=== PATIENT | female | born 1995 | race Caucasian/White ===

== ENCOUNTER 2019-08-03 17:45 | Outpatient (RCR) | payer BC, SELFPAY ==
--- NOTE | 2019-07-06 16:47 | PTOPEVAL ---
PHYSICAL THERAPY EVALUATION AND PLAN OF CARE Thank you for referring this patient to [facility]. Pepper will be seen in PT 1-2x/week for 5-8 weeks. Please review, sign, date and return this plan of care RONI. I agree with and certify that the following plan of care is medically necessary. Referring Physician Date Attending Provider: Rosa Maria Nesbitt CNM Evaluation Evaluation Information Diagnosis left hip/pelvic pain Onset May 18, 2019 Subjective Information Pepper is here today with Query Text:As Reported By Patient/ acute on chronic left hip/ Family pelvic pain following child . States she has had difficulty with her hips prior to childbirth, but it is definitely worse now. She reports feeling very unstable while walking and standing. Self Report Pain Assessment Left Hip(s) Reported Pain Level 3 Radicular Pain Location tension Pain Frequency Chronic,Continuous Current Pain Intensity 3 Lowest Pain Intensity 2 Greatest Pain Intensity 8 Pain Aggravating Factors Exercise/Activity,Walking, Weight Bearing/Standing Other Pain Aggravating Factors sitting bryn cross Other Alleviating Interventions prone figure 4 position is most comfortable position Lumbar ROM Lumbar Flexion Active Ankle Query Text:Hands to: Lumbar Extension (0-40) 20 Query Text:Active in Degrees Lateral Rotation Right (0-45) 20 Query Text:Active in Degrees Lateral Rotation Left (0-45) 35 Query Text:Active in Degrees Lower Extremity Range of Motion Gross Lower Extremity Range of Motion right hip ER <left hip ER; Lumbar Muscle Testing Lumbar Strength Lower Abdominal Strength 3-Fair- Lower Back Extension 3 Fair Hip Strength Left Hip Flexion Strength 4- Good - Hip Extension Strength 3 Fair Hip Abduction Strength 4 Good Right Hip Flexion Strength 4 Good Hip Extension Strength 3+ Fair + Hip Abduction Strength 4- Good - Knee Strength Bilateral Knee Flexion Strength 4 Good Knee Extension Strength 4 Good Posture Supine Position Pelvis Posture (L) ASIS Inferior Additional Posture Comments in standing: right pelvis elevated when standing equally on two feet; patient tends to stand casually on left foot with right foot popped Palpation
--- NOTE | 2019-07-15 14:52 | PCPTNOTE ---
Patient called & cancelled scheduled appointment this date due to inclement water.
--- NOTE | 2019-07-27 15:52 | PCPTNOTE ---
Patient called & cancelled scheduled appointment this date as daughter is sick.
--- NOTE | 2019-08-10 15:59 | PCPTNOTE ---
Patient called & cancelled scheduled appointment this date with another conflict. I will call to reschedule her re-evaluation.
--- NOTE | 2019-09-02 14:34 | PCPTNOTE ---
Attending Provider: Rosa Maria Nesbitt CNM Patient:Pepper Silveira Date of :1995 Patient has not returned for any further treatments since 08/03/2019, therefore she will be discharged from therapy at this time. The goals have been partially achieved. Thank you for referring this patient to [facility]. Please review, sign, date and return this discharge summary RONI. I have been updated about the patient's current status and I agree with discharge from the above service at this time. Referring Physician Date
== END 2019-09-03 14:44 | disposition home or self-care (01) ==
LOC: ANHPT 17:45
PROVIDERS: PCP Internal Medicine; Visit Provider Advanced Practice Midwife
DX: M25.552 Pain in left hip (principal)
CPT/HCPCS: 97110; 97140; 97161

== ENCOUNTER → 2021-09-07 15:23 | Outpatient (CLI) | payer OTHER, SELFPAY ==
--- NOTE | ~2021-09-07 | XR_ITS ---
XR hand RT min 3V DATE: 09/07/2021 15:50 INDICATION: Injury, pain TECHNIQUE: 3 views COMPARISON: None FINDINGS: No fracture, dislocation, periosteal reaction or bone destruction, erosive change, chondroc alcinosis. IMPRESSION: Negative Reviewed, dictated and finalized at location A. IMPRESSION: Negative
== END ==
PROVIDERS: Visit Provider Family Medicine
DX: S69.91XA Unspecified injury of right wrist, hand and finger(s), initial encounter (principal)
CPT/HCPCS: 73130

== ENCOUNTER 2022-06-13 11:40 | Emergency (ER) | payer OTHER, SELFPAY ==
[2022-06-13 11:48] VITALS: BP 122/94; PULSE 73; RESP 16; TEMP 36.3; O2SAT 100
--- NOTE | 2022-06-13 12:07 | ED.BACK ---
HPI - Back Pain/Injury General Chief Complaint: Back Pain/Injury Stated Complaint: Back Pain Time Seen by Provider: 06/13/22 11:55 Source: patient Mode of arrival: ambulatory Limitations: no limitations History of Present Illness HPI Narrative: Pepper is a 26-year-old female patient presenting to clinic today with complaints of low back pain times 2 days. She reports that the symptoms started yesterday when she got up off the couch. She denies any other injury to her back. States that she does have some chronic back pain due to pain epidural. Reports that pain is in the low back and radiating laterally. Rates her pain currently. She has taken ibuprofen/Motrin without relief. She denies any numbness or tingling. She denies any saddle anesthesia or loss of bowel or bladder. She denies any urinary symptoms Related Data Allergies Allergy/AdvReac Type Severity Reaction Status Date / Time latex Allergy Intermediate Rash Verified 06/13/22 11:44 escitalopram Allergy Unknown Other Verified 06/13/22 11:44 lactose AdvReac Intermediate Diarrhea Verified 06/13/22 11:44 Review of Systems Review of Systems: Pertinent positives per HPI. Patient denies any fever, chills, rash, headache, visual changes, dizziness, cough, runny nose, sore throat, shortness of breath, chest pain, palpitations, nausea, vomiting, diarrhea, constipation, abdominal pain, or any urinary issues. PMFSH Past Medical History Medical History Heart murmur Migraine aura without headache PCOS (polycystic ovarian syndrome) Family History Family History Other Unknown family medical history Social History Social History Smoking status: Never smoker Alcohol intake: never Substance use: never Gender identity (if verbalized by the patient): Female Spiritual care concerns: No Comments At the time of my signature, I reviewed and agree with the nursing past medical, surgical, social, and family history. There is no relevant family history pertinent to the patient complaint. Exam Narrative: General: Well-developed, well nourished, in no apparent distress Head: Normocephalic, atraumatic. Cardio: Regular rate and rhythm, s1 and s2 normal, no murmur appreciated. Resp: Clear to auscultation bilaterally, no rhonchi, rales, wheezing or rubs. Abdomen: Soft, pliable, nondistended, bowel sounds present all 4 quadrants, nontender to palpation, no CVAT tenderness, no organomegaly Musculoskeletal: No deformity, tender to palpation over the lumbar spine and paraspinous muscles, straight leg test positive bilaterally at approximately 80?, negative foot drop, bilateral lower muscle strength strong and equal, patellar reflexes 2/4, peripheral pulse strong, no edema, no cyanosis, normal gait and station Course Course Emergency Course: Portions of this record may have been created with voice recognition software. Level of Care: Express Care Visit Vital Signs Vital signs: Vital Signs Temperature 36.3 C L 06/13/22 11:48 Pulse Rate 73 06/13/22 11:48 Respiratory Rate 16 06/13/22 11:48 Blood Pressure 122/94 H 06/13/22 11:48 Pulse Oximetry 100 06/13/22 11:48 Oxygen Delivery Room Air 06/13/22 11:48 Temperature 36.3 C L 06/13/22 11:48 Pulse Rate 73 06/13/22 11:48 Respiratory Rate 16 06/13/22 11:48 Blood Pressure 122/94 H 06/13/22 11:48 Pulse Oximetry 100 06/13/22 11:48 Oxygen Delivery Room Air 06/13/22 11:48 Vital signs reviewed MDM - Back Pain/Injury Lab Data Labs: Urine Glucose Negative Reference Range: Negative Urine Bilirubin Negative Reference Range: Negative Urine Ketone Negative
== END 2022-06-13 12:33 | disposition home or self-care (01) ==
PROVIDERS: Emergency Provider Nurse Practitioner Family; PCP Family Medicine
DX: S39.012A Strain of muscle, fascia and tendon of lower back, initial encounter (principal); X50.9XXA Other and unspecified overexertion or strenuous movements or postures, initial encounter; R82.71 Bacteriuria; R01.1 Cardiac murmur, unspecified; E28.2 Polycystic ovarian syndrome
CPT/HCPCS: 81003; 87086; 99213; G0463

== ENCOUNTER 2022-12-08 20:22 | Emergency (ER) | payer BC, SELFPAY ==
--- NOTE | ~2022-12-08 | XR_ITS ---
EXAMINATION: XR chest 1V portable INDICATION: Shortness of breath TECHNIQUE: Portable AP chest at 2215 hours COMPARISON: 02/16/2009 FINDINGS: The lungs are free of acute opacities. No pleural effusion or pneumothorax. The cardiomedia stinal silhouette is normal. The visualized bones and soft tissues are unremarkable. IMPRESSION: 1. No acute cardiopulmonary abnormality. Reviewed, dictated and finalized at location A.
[2022-12-08 20:27] VITALS: BP 145/84; PULSE 78; RESP 16; TEMP 36.3; O2SAT 100
[2022-12-08 22:28] LABS: Basophils Absolute Auto 0.1 K/mm3 (0.0-0.1); Basophils Percent Auto 0.8 % (0.2-1.2); Eosinophils Percent Auto 0.6 % (0-4.4); Hematocrit 40.8 % (37.0-47.0); Hemoglobin 13.9 g/dL (12.0-15.0); Immature Granulocyte Absolute 0.02 K/mm3 (0.00-0.031); Immature Granulocyte Percent A 0.3 % (0-0.5); Lymphocytes Absolute Auto 2.16 K/mm3 (0.9-3.2); Lymphocytes Percent Auto 30.3 % (18.3-44.2); Mean Corpuscular HGB Conc 34.1 g/dl (32-36); Mean Corpuscular Hemoglobin 30.3 pg (26-34); Mean Corpuscular Volume 89.1 fl (80-100); Mean Platelet Volume 11.2 fl (7.4-10.4); Monocytes Absolute Auto 0.4 K/mm3 (0.1-0.6); Monocytes Percent Auto 5.2 % (2.6-8.5); Neutrophils Absolute Auto 4.5 K/mm3 (1.3-6.7); Neutrophils Percent Auto 62.8 % (45.5-73.1); Platelet Count Result 245 k/mm3 (150-375); Red Blood Count 4.58 M/mm3 (4.2-5.4); Red Cell Distribution Width 11.8 % (11.5-14.5); White Blood Count 7.1 K/mm3 (4.5-10.0)
[2022-12-08 22:41] LABS: Alanine Aminotransferase 15 U/L (6-35); Albumin Level 4.5 g/dL (3.5-5.1); Alkaline Phosphatase 62 U/L (38-126); Anion Gap 8 mmol/L (8-16); Aspartate Amino Transferase 19 U/L (14-36); Bilirubin,Total 0.6 mg/dL (0.2-1.3); Blood Urea Nitrogen 8 mg/dL (7-17); Calcium 9.2 mg/dL (8.4-10.2); Carbon Dioxide 27 mmol/L (22-30); Chloride 103 mmol/L (98-107); Estimated CRCL calculation 99 ml/min; Estimated Glomerular Filt Rate > 60; Glucose 104 mg/dL (65-110); Potassium 3.7 mmol/L (3.4-5.0); Sodium 138 mmol/L (137-145)
--- NOTE | 2022-12-08 22:41 | ECG_ITS ---
Measurements Intervals Yoder Rate: 83 P: 19 ID: 136 QRS: 17 QRSD: 113 T: 25 QT: 395 QTc: 465 Interpretive Statements SINUS RHYTHM NORMAL ECG NO PREVIOUS ECG AVAILABLE FOR COMPARISON Electronically Signed On 12-09-2022 8:49:56 CDT by Timbo Shaw D.O.
[2022-12-08] MEDS: SODIUM CHLORIDE 0.9% IV 1,000 ML 999 ML IV CONT (23:01)
--- NOTE | 2022-12-08 23:17 | ED.GENADULT ---
HPI - General Adult General Chief complaint: Unspecified Stated complaint: I think my anemia is really bad today Time Seen by Provider: 12/08/22 22:03 History of Present Illness HPI narrative: is a 19-year-old female with history of anxiety and depression presenting with 2 weeks of feeling unwell. She says that she has felt like she may pass out multiple times over the last 2 weeks. She notes that she is not sleeping well. She is not eating or drinking well. She thinks this may be related to her depression and anxiety. Patient has not had an actual syncopal event. She does note that she was anemic in her . she thinks this might be due to anemia. She has not seen her primary care physician and year. She has been trialed on antidepressants in the past but stopped taking them. Related Data Allergies Allergy/AdvReac Type Severity Reaction Status Date / Time latex Allergy Intermediate Rash Verified 12/08/22 20:23 escitalopram Allergy Unknown Other Verified 12/08/22 20:23 lactose AdvReac Intermediate Diarrhea Verified 12/08/22 20:23 [facility] Past Medical History Medical History Heart murmur Migraine aura without headache PCOS (polycystic ovarian syndrome) Family History Family History Other Unknown family medical history Social History Social History Smoking status: Never smoker Alcohol intake: never Substance use: never Gender identity (if verbalized by the patient): Female Spiritual care concerns: No Exam Narrative: APPEARANCE: No apparent distress. Well-appearing Head: atraumatic. EYES: EOMI, NOSE: Atraumatic NECK: Trachea midline RESPIRATORY: No increased rate of breathing, clear to auscultation CARDIOVASCULAR: RRR, no peripheral edema ABDOMINAL: Non-distended MUSCULOSKELETAl: No obvious deformities NEURO: Alert. Moving 4/4 extremities SKIN:: Warm, dry. Normal color PSYCHIATRIC: Normal affect Course Vital Signs Vital signs: Vital Signs Temperature 97.3 F L 12/08/22 20:27 Pulse Rate 78 12/08/22 20:27 Respiratory Rate 16 12/08/22 20:27 Blood Pressure 145/84 H 12/08/22 20:27 Pulse Oximetry 100 12/08/22 20:27 Temperature 97.3 F L 12/08/22 20:27 Pulse Rate 78 12/08/22 20:27 Respiratory Rate 16 12/08/22 20:27 Blood Pressure 145/84 H 12/08/22 20:27 Pulse Oximetry 100 12/08/22 20:27 Medical Decision Making MDM Narrative Medical decision making narrative: -Presentation: 27-year-old presenting with 2 weeks of generalized weakness, trouble sleeping and not eating well. -DDX includes but is not limited to: Anxiety, depression, anemia, dehydration -Co-morbidities complicating care: anxiety, depression, anemia, migraines -Social determinants of health: patient works at [employer], lives with her Jett and their 3-year-old child -External Chart Review: none -Hx from independent Sources: Jett at bedside -Independent interpretation of studies: laboratory studies normal. Chest x-ray normal. Independent EKG interpretation: Rhythm [sinus], Rate [83], [place] -[normal], [place] -[normal], QRS [narrow], QTC [normal], T waves -[negative for concerning inversions], ST Segments - [Negative for concerning elevations] Final interpretations: [Normal Sinus Rhythm] -Discussion of Management/Consultants: none -Dx tests considered but not ordered: none -Procedures: none -Interventions: 1 L normal saline -Shared decision making / Disposition: patient's workup has been negative. I suspect that her symptoms are more likely due to anxiety and depression as opposed to a physiologic cause. Patient will be discharged with primary care follow-up and return precautions. -RX Vital Signs Vital Signs: Vital Signs Temperature 97.3 F L 12/08/22 20:27 Pulse Rate 78
[2022-12-09 00:09] VITALS: BP 120/63; PULSE 92; RESP 16; O2SAT 100
== END 2022-12-09 00:11 | disposition home or self-care (01) ==
PROVIDERS: Emergency Provider Emergency Medicine; PCP Internal Medicine
DX: R53.1 Weakness (principal); E28.2 Polycystic ovarian syndrome; F41.9 Anxiety disorder, unspecified; F32.A Depression, unspecified; Z86.2 Personal history of diseases of the blood and blood-forming organs and certain disorders involving the immune mechanism
CPT/HCPCS: 36415; 71045; 80053; 85025; 93005; 96360; 99283; J7030

== ENCOUNTER 2023-01-27 15:15 | Emergency (ER) | payer BC, SELFPAY ==
--- NOTE | 2023-01-27 15:20 | ED.ABDPAIN ---
HPI - Abdominal Pain General Chief Complaint: Abdominal Pain Stated Complaint: Abdominal Pain Time Seen by Provider: 01/27/23 15:20 Source: patient Mode of arrival: ambulatory Limitations: no limitations History of Present Illness HPI narrative: Pepper is a 27-year-old female patient presenting to clinic today with complaints of abdominal pain. She reports she has been having IBS flares as week however obtain intense pain today. States that she is having pain to the upper abdomen this radiating her back also having some indigestion. Having nausea without vomiting. No hematemesis or blood in her stool. Last bowel movement was last night and it was loose. She denies any urinary symptoms or flank pain. History of IBS- mixed Related Data Home Medications Medication Instructions Recorded Confirmed No Home Medications 01/27/23 01/27/23 Allergies Allergy/AdvReac Type Severity Reaction Status Date / Time latex Allergy Intermediate Rash Verified 01/27/23 15:26 escitalopram Allergy Unknown Other Verified 01/27/23 15:26 lactose AdvReac Intermediate Diarrhea Verified 01/27/23 15:26 Review of Systems Review of Systems: Pertinent positives per HPI. Patient denies any fever, chills, rash, headache, visual changes, dizziness, cough, runny nose, sore throat, shortness of breath, chest pain, palpitations, nausea, vomiting, diarrhea, constipation,or any urinary issues. PMFSH Past Medical History Medical History Heart murmur Migraine aura without headache PCOS (polycystic ovarian syndrome) Family History Family History Other Unknown family medical history Social History Social History Smoking status: Never smoker Alcohol intake: never Substance use: never Gender identity (if verbalized by the patient): Female Spiritual care concerns: No Comments At the time of my signature, I reviewed and agree with the nursing past medical, surgical, social, and family history. There is no relevant family history pertinent to the patient complaint. Exam Narrative: General: Well-developed, well nourished, in no apparent distress. Head: Normocephalic, atraumatic. Cardio: Regular rate and rhythm, s1 and s2 normal, no murmur appreciated. Resp: Clear to auscultation bilaterally, no rhonchi, rales, wheezing or rubs. Abdomen: Soft, pliable, nondistended, bowel sounds present in all quadrants, tender to palpation over the mid epigastrium and left upper quadrant as well as the low mid abdomen, no organomegly, no CVAT tenderness. Course Course Emergency Course: Portions of this record may have been created with voice recognition software. Level of Care: Express Care Visit Vital Signs Vital signs: Vital signs reviewed MDM - Abdominal Pain MDM Narrative Medical decision making narrative: At the time of visit patient is resting on the exam table. Patient is tearful during assessment. UA is negative for any sign of infection or blood in her urine. test was negative in the clinic today. Recommend transfer to the ER for further evaluation to rule out gastritis, IBS, GERD, or pancreatitis-fluids and pain management. Contacted Dr. Judd at [facility]- report was given for continuity care and she accepts patient for transfer. Patient transfer via private car Differential Diagnosis Differential diagnosis: Likely abdominal pain, constipation, gastroenteritis, pancreatitis and other (Gastritis, peptic ulcer, cholecystitis, gallstones) Discharge Plan Discharge Clinical Impression: Abdominal pain Patient Disposition: Acute Care Hospital Condition: Stable Prescriptions: No Action No Home Medications Follow-up/Referrals: Hilario Pastor DO [Primary Care Provider] - Time of Disposition: 15:45 John
[2023-01-27 15:23] VITALS: BP 116/78; PULSE 88; RESP 16; TEMP 37.3; O2SAT 99
[2023-01-27 15:27] VITALS: BP 116/78; PULSE 88; RESP 16; TEMP 37.3; O2SAT 99
== END 2023-01-27 15:42 | disposition short-term general hospital (02) ==
PROVIDERS: Emergency Provider Nurse Practitioner Family; PCP Internal Medicine
DX: R10.13 Epigastric pain (principal); R10.12 Left upper quadrant pain; R10.30 Lower abdominal pain, unspecified; R01.1 Cardiac murmur, unspecified; E28.2 Polycystic ovarian syndrome
CPT/HCPCS: 81003; 81025; 99212; G0463

== ENCOUNTER 2023-01-27 16:25 | Observation (INO) | payer BC, SELFPAY ==
--- NOTE | ~2023-01-27 | CT_ITS ---
EXAMINATION: CT abdomen pelvis w con INDICATION: Right upper quadrant abdominal pain TECHNIQUE: Computed tomographic images of the abdomen and pelvis were obtained after the administrati on of 100 cc of Omnipaque 350 intravenous contrast. The dose-length product (DLP) was 377.00 mGy-cm. Automated exposure control and iterative reconstruction technique were employed. COMPARISON: None available FINDINGS: The lung bases are clear. The heart size is normal. The liver, spleen, pancreas, gallbladde r, and adrenal glands are normal. The kidneys are unremarkable. No pathologically enlarged abdominal or pelvic lymph nodes are identified. No free intraperitoneal gas or evidence of bowel obstruction. T he appendix is normal. There is mild lumbar spondylosis. IMPRESSION: 1. No CT correlate for the patient's symptoms. Reviewed, dictated and finalized at location F.
--- NOTE | ~2023-01-27 | US_ITS ---
EXAMINATION: US right upper quadrant DATE: 01/28/2023 08:41 INDICATION: Right upper quadrant pain TECHNIQUE: Multiple grayscale and Doppler ultrasound images of the abdomen were obtained. COMPARISON: 03/28/2017; CT, 01/27/2023 FINDINGS: Bowel gas obscures visualization of the pancreas. The visualized portions of the pancreas a re unremarkable. The liver is normal with normal echogenicity and echotexture. No surface nodularity. Normal hepatopetal flow in the main portal vein. The gallbladder is normal with no abnormal wall thi ckening, pericholecystic fluid or stones. The normal common bile duct measures 4 mm. There was no son ographic Dumont sign. IMPRESSION: 1. Normal sonographic study of the gallbladder. Reviewed, dictated and finalized at location A.
[2023-01-27 16:27] VITALS: BP 136/93; PULSE 96; RESP 18; TEMP 37.7; O2SAT 100
[2023-01-27 16:44] LABS: Basophils Absolute Auto 0.1 K/mm3 (0.0-0.1); Basophils Percent Auto 0.9 % (0.2-1.2); Eosinophils Absolute Auto 0.1 K/mm3 (0-0.3); Eosinophils Percent Auto 0.7 % (0-4.4); Hematocrit 43.6 % (37.0-47.0); Hemoglobin 14.7 g/dL (12.0-15.0); Immature Granulocyte Absolute 0.01 K/mm3 (0.00-0.031); Immature Granulocyte Percent A 0.1 % (0-0.5); Lymphocytes Absolute Auto 2.86 K/mm3 (0.9-3.2); Lymphocytes Percent Auto 41.8 % (18.3-44.2); Mean Corpuscular HGB Conc 33.7 g/dl (32-36); Mean Corpuscular Hemoglobin 30.2 pg (26-34); Mean Corpuscular Volume 89.5 fl (80-100); Monocytes Absolute Auto 0.3 K/mm3 (0.1-0.6); Monocytes Percent Auto 4.4 % (2.6-8.5); Neutrophils Absolute Auto 3.6 K/mm3 (1.3-6.7); Neutrophils Percent Auto 52.1 % (45.5-73.1); Platelet Count Result 265 k/mm3 (150-375); Red Blood Count 4.87 M/mm3 (4.2-5.4); Red Cell Distribution Width 11.9 % (11.5-14.5); White Blood Count 6.8 K/mm3 (4.5-10.0)
[2023-01-27 16:54] LABS: Alanine Aminotransferase 20 U/L (6-35); Albumin Level 5.2 g/dL (3.5-5.1); Alkaline Phosphatase 61 U/L (38-126); Anion Gap 11 mmol/L (8-16); Aspartate Amino Transferase 23 U/L (14-36); Bilirubin,Total 0.5 mg/dL (0.2-1.3); Blood Urea Nitrogen 12 mg/dL (7-17); Calcium 9.5 mg/dL (8.4-10.2); Carbon Dioxide 28 mmol/L (22-30); Chloride 102 mmol/L (98-107); Estimated CRCL calculation 88 ml/min; Estimated Glomerular Filt Rate > 60; Glucose 103 mg/dL (65-110); Lipase 66 U/L (23-300); Potassium 3.6 mmol/L (3.4-5.0); Sodium 141 mmol/L (137-145)
[2023-01-27 17:18] LABS: Appearance Urine Cloudy (Clear); Bacteria Urine 1+ /hpf; Bilirubin Urine Negative (Negative); Blood Urine Negative (Negative); Color Urine Yellow (Yellow); Glucose Urine UA Negative (Negative); Ketones Urine Negative (Negative); Leukocyte Esterase Ur 1+ LEU/UL (Negative); Nitrate Urine Negative (Negative); Non Pathogenic Casts 0-2; Protein Urine Trace mg/dL (Negative); RBC Urine 0-2 /hpf (0-2); Specific Grav Ur 1.025 (1.001-1.035); Squamous Epithelial Cell Urine Few /hpf (Few)
[2023-01-27 17:24] LABS: Add Urine Microscopic? YES
--- NOTE | 2023-01-27 17:28 | ED.ABDPAIN ---
HPI - Abdominal Pain General Chief Complaint: Abdominal Pain Stated Complaint: abd pain Time Seen by Provider: 01/27/23 17:07 Source: patient Limitations: no limitations History of Present Illness HPI narrative: Patient is a 27-year-old female presents to the emergency department complaining of abdominal pain. Patient notes for the past 1 week she has been experiencing daily IBS flareups with a gurgling sensation in a sensation of gas moving in her abdomen in addition to nonbloody watery and brown diarrhea or couple episodes daily however yesterday she noticed a new onset of a epigastric and right upper quadrant abdominal pain that is sharp, constant, radiates to her back, worse when sitting up or putting pressure in the right upper quadrant, denies any history of pain in the past, has not tried anything for the pain, admits to associated nausea without vomiting. Patient denies when having similar symptoms to her. Patient denies any injuries recently or any recent illness. Patient denies dysuria, hematuria, history kidney stones, urinary frequency, urinary urgency, chest pain, shortness of breath, cough, history of IV drug use, recent hospitalizations, recent antibiotic use. Last menstrual period was 1 month ago. Related Data Allergies Allergy/AdvReac Type Severity Reaction Status Date / Time latex Allergy Intermediate Rash Verified 01/27/23 16:29 escitalopram Allergy Unknown Other Verified 01/27/23 16:29 lactose AdvReac Intermediate Diarrhea Verified 01/27/23 16:29 [facility] Past Medical History Medical History Heart murmur Migraine aura without headache PCOS (polycystic ovarian syndrome) Family History Family History Other Unknown family medical history Social History Social History Smoking status: Never smoker Alcohol intake: never Substance use: never Gender identity (if verbalized by the patient): Female Spiritual care concerns: No Comments At time of signature, I have reviewed and agree with nursing past medical, surgical, social and family history unless otherwise noted. Please see nursing chart for further information. There is no relevant family history pertinent to the presenting complaint. Exam Const: General: alert; No no acute distress (mild, complaining of abdominal pain) Nutritional Appearance: well nourished Orientation/consciousness: patient oriented x3 HENMT: Head: normal to inspection Mouth: Yes dry mucous membranes Throat: posterior oropharynx normal Eyes: Conjunctivae: conjunctivae normal Pupils: Equal, round and reactive pupils present Other: No scleral icterus. Resp: Effort & Inspection: normal respiratory effort and not labored Auscultation: clear to auscultation bilaterally Cardio: Rate: regular rate Rhythm: regular rhythm Heart sounds: no murmurs GI: Inspection: non-distended GI Palp: Yes abdominal tenderness (RUQ and epigastric, mild), Yes Soft to palpation, No Guarding due to palpation present (GI), No Rigid due to palpation, Yes No hepatosplenomegaly present, No Hernia present and No Rebound tenderness present Other: Positive stephens's sign. No mcburneys point TTP. : General: Yes bladder normal to palpation Back/Spine/Pelvis: Back: no CVA tenderness Skin: General skin exam: no jaundice and no pallor Rashes: no rashes Neuro: General: patient oriented x3, moves all extremities and no focal motor deficits Extrem: General: no pedal edema Psych: Affect: Anxious affect present Course Vital Signs Vital signs: Vital Signs Temperature 99.8 F H 01/27/23 16:27 Pulse Rate 96 01/27/23 16:27 Respiratory Rate 18 01/27/23 16:27 Blood Pressure 136/93 H 01/27/23 16:27 Pulse Oximetry 100 01/27/23 16:27 Oxygen Delivery Room Air 01/27/23 16:27 Temperature
[2023-01-27] MEDS: ONDANSETRON INJ 4 MG/2 ML VIAL IV PUSH (17:50)
[2023-01-27] MEDS: LACTATED RINGERS 1,000 ML 999 ML IV CONT (17:50)
[2023-01-27] MEDS: DICYCLOMINE HCL 10 MG CAPSULE PO (19:34)
[2023-01-27] MEDS: CEPHALEXIN 500 MG CAPSULE PO (19:34)
[2023-01-27 20:24] VITALS: BP 107/78; PULSE 76; RESP 16; O2SAT 97
[2023-01-27 21:17] VITALS: BMI 28.4
--- NOTE | 2023-01-27 21:26 | ADMGEN ---
This patient, Pepper Pickering, was admitted to Medical Room 340-01. Patient/family oriented to hospital policies and general routines including ID bracelet, bed and alarms, visiting hours, pain management, procedures, bathroom and other care routines, personal items, smoking policy, room service/diet, and visiting hours. Information on how to activate the Rapid Response Team has been discussed. Patient/Family are encouraged to report perceived risks to care and to ask questions if they do not understand what they are told or what they should do.
[2023-01-27 21:33] VITALS: BP 123/65; PULSE 70; RESP 18; TEMP 36.7; O2SAT 100
--- NOTE | 2023-01-27 22:11 | PM.IMHP ---
H&P: HPI History of Present Illness Date/Time: 01/27/23 21:40 Chief Complaint: Upper abdominal pain Narrative: 27-year-old female with a past medical history of anxiety, PCOS and irritable bowel syndrome who presented to the ER via private vehicle due to abdominal pain. The patient reports that for the last week she has been having her usual irritable bowel symptoms with left lower abdominal pain that is crampy with some bloating. It usually precedes her having her lose brown stools. However she became more concerned when yesterday she developed epigastric and right upper quadrant abdominal pain. This pain was more sharp and stabbing in nature. It seemed worse any time she would eat anything. It was accompanied by some nausea. She thinks she would feel better if she could vomit. The pain radiates straight through to her back and is a 10/10 in intensity at times. She was refusing any pain medications in the ER because she did not want to take any narcotics due knowing people would overdosed on pain meds. She denies any chest pain or shortness of breath. She reports that she has not been eating any high fat foods. She had ate a bagel right before the onset of her symptoms and has some mashed potatoes later the same day that worsened her symptoms. She reports that her stools have been a little bit oracle database consultant brown in color. She denies having any fevers at home but in the ER was noted to have a temperature of 99.8?. She had a normal white count. She reports that her pain is worse when she tries to sit down. She denies any recent ill contacts. She has never had any abdominal surgeries. She has never had a colonoscopy or EGD. In the ER her UA was slightly abnormal but she denies any urinary symptoms. The ER provider performed a bedside ultrasound and felt that there was the appearance of sludge. He did not notice any specific gallbladder inflammation or obvious stones. Review of Systems Review of Systems: 12 systems were reviewed with pertinent positives and negatives per HPI. Except as documented in the HPI, all other systems were reviewed and are negative. [facility] Past Medical History Medical History (Updated 01/27/23 @ 22:22 by Tracy Aguilar DO) Heart murmur Irritable bowel syndrome Migraine aura without headache PCOS (polycystic ovarian syndrome) Surgical History Surgical History (Updated 01/27/23 @ 22:15 by Tracy Aguilar DO) No history of previous surgery Family History Family History Mother Diabetes mellitus Hypertension Grandparent Diabetes mellitus Skin cancer Social History Social History (Updated 01/27/23 @ 22:16 by Tracy Aguilar DO) Social History: She is to her high school gener. They have been since 2019. They have a 3 point 5-year-old daughter. She works at a local [employer]. She rarely drinks alcohol and only small amounts. She denies any illicit substance use. She is a lifelong nonsmoker. Code status: Full code Surrogate decision maker: Smoking status: Never smoker Alcohol intake: never Substance use: never Lack of Transportation: No Lack of Food: Never True Current Housing: I Have Housing Concerned About Future Housing: No Difficulty Paying Gas/Electric Bills: No Difficulty Paying for Meds: No Currently Unemployed: No Education: Bachelor's Degree Difficulty w/ Childcare or Family Care: No Gender identity (if verbalized by the patient): Female Spiritual care concerns: No Meds Home Medications and Allergies Home Medications Medication Instructions Recorded Confirmed Type No Home Medications 01/27/23 01/27/23 History Allergies Allergy/AdvReac Type Severity Reaction Status Date / Time latex Allergy Intermediate Rash Verified 01/27/23 16:29 escitalopram Allergy Unknown Other Verified 01/27/23 16:29 lactose AdvReac Intermediate Diarrhea Veri
[2023-01-27] MEDS: KETOROLAC 30 MG/ML VIAL (*BKC) IV PUSH (22:40)
[2023-01-27] MEDS: LACTATED RINGERS 1,000 ML 125 ML IV CONT (22:40)
[2023-01-27] MEDS: FAMOTIDINE 20 MG/2 ML VIAL IV PUSH (22:41)
[2023-01-28 04:12] VITALS: BP 107/61; PULSE 58; RESP 16; TEMP 36.9; O2SAT 99
--- NOTE | 2023-01-28 08:24 | PC.NURSE ---
Patient off of unit for right upper quadrant.
[2023-01-28] MEDS: LACTATED RINGERS 1,000 ML 125 ML IV CONT (08:55)
[2023-01-28] MEDS: FAMOTIDINE 20 MG/2 ML VIAL IV PUSH (08:56)
--- NOTE | 2023-01-28 10:51 | P.DS_ITS ---
DS: Admitting Diagnosis Discharge Date 01/28/2023 Admitting Diagnosis Abdominal pain DS: Discharge Diagnosis Discharge Diagnosis (1) Epigastric pain: Code(s): R10.13 - Epigastric pain Status: Acute DS: Summary Hospital Course Hospital Course: 27-year-old female with a past medical history of anxiety, PCOS and irritable bowel syndrome who presented to the ER via private vehicle due to abdominal pain. Abdominal ultrasound and CT of the abdomen were negative for any acute findings. Patient was epigastric pain. Likely gastritis. Patient is otherwise clinically stable and will be discharged home with oral antacids. Time Spent with Patient Time attestation: Total time spent providing and/or coordinating discharge services: DS: Data Data Completed and Pending Labs on day of discharge: Labs from last 24 hours 01/27/23 01/27/23 17:01 16:39 WBC 6.8 RBC 4.87 Hgb 14.7 Hct 43.6 MCV 89.5 MCH 30.2 MCHC 33.7 RDW 11.9 Plt Count 265 MPV 11.0 H Immature Gran % (Auto) 0.1 Neut % (Auto) 52.1 Lymph % (Auto) 41.8 Bullock % (Auto) 4.4 Eos % (Auto) 0.7 Baso % (Auto) 0.9 Lymph # (Auto) 2.86 Bullock # (Auto) 0.3 Eos # (Auto) 0.1 Baso # (Auto) 0.1 Abs Immat Gran (auto) 0.01 Absolute Neuts (auto) 3.6 Absolute Nucleated RBC 0.0 Nucleated RBC % 0.0 Sodium 141 Potassium 3.6 Chloride 102 Carbon Dioxide 28 Anion Gap 11 BUN 12 Creatinine 0.70 Estim Creat Clear Calc 88 Estimated GFR > 60 Glucose 103 Calcium 9.5 Total Bilirubin 0.5 AST 23 ALT 20 Alkaline Phosphatase 61 Total Protein 9.0 H Albumin 5.2 H Lipase 66 Urine Color Yellow Urine Appearance Cloudy H Urine pH 8.0 Ur Specific [place] 1.025 Urine Protein Trace Urine Glucose (UA) Negative Urine Ketones Negative Ur Blood (Man) Negative Urine Nitrate Negative Urine Bilirubin Negative Urine Urobilinogen 1.0 Leukocyte Esterase Rfl 1+ H Urine RBC 0-2 Urine WBC 6-10 H Ur Squamous Epith Cells Few Urine Bacteria 1+ H Urine Casts 0-2 Discharge Plan Discharge Discharging Clinician: Moonat,Roderick K. Anticipated Discharge Date/Time: 01/28/23 10:50 Patient Disposition: Home, Self-Care Activity: no preference Diet: regular Patient Instructions: Antibiotic Form Stand Alone Forms: General Discharge Information Follow-up/Referrals: Hilario Pastor, [Primary Care Provider] - Discharge Medications: New famotidine-Ca carb-mag hydrox 10-800-165 mg tablet,chewable 1 tablet PO BID Qty: 30 0RF No Action No Home Medications Date of admission: 01/27/23 20:05 Primary Care Provider: Hilario Pastor Admitting Provider: Tracy Aguilar Attending physician on admission: Roderick Rossi Condition: Stable
== END 2023-01-28 12:40 | disposition home or self-care (01) ==
LOC: ANHED 19:42 → ANH3MED 20:35
PROVIDERS: Admitting Provider Internal Medicine; Emergency Provider Student in an Organized Health Care Education/Training Program; PCP Internal Medicine; Visit Provider Hospitalist
DX: R10.13 Epigastric pain (principal); R10.11 Right upper quadrant pain; R50.9 Fever, unspecified; R82.90 Unspecified abnormal findings in urine; K58.0 Irritable bowel syndrome with diarrhea; M54.9 Dorsalgia, unspecified; R11.0 Nausea; F41.9 Anxiety disorder, unspecified; E28.2 Polycystic ovarian syndrome; F10.90 Alcohol use, unspecified, uncomplicated
CPT/HCPCS: 36415; 74177; 76705; 80053; 81001; 81025; 83690; 85025; 87086; 87088; 96361; 96374; 96375; 96376; 99285; A9270; G0378; J1885; J2405; J7120; Q9967

== ENCOUNTER 2023-07-14 15:18 | Emergency (ER) | payer OTHER, SELFPAY ==
[2023-07-14 15:25] VITALS: BP 111/70; PULSE 86; RESP 16; TEMP 37.1; O2SAT 100
--- NOTE | 2023-07-14 15:28 | ED.GENADULT ---
HPI - General Adult General Chief complaint: Skin/Abscess/Foreign Body Stated complaint: Painful Cyst on Side Time Seen by Provider: 07/14/23 15:28 Source: patient Mode of arrival: ambulatory Limitations: no limitations History of Present Illness HPI narrative: 27 y/o female presented for c/o red, tender skin nodule to her left ribs. Pain worsening for 2 days. States she has had a small cyst there for years, and she will occasionally squeeze the site. States she can expel clear drainage with a foul odor, which she did this morning and had the same drainage. Denies active drainage, n/v/d/f/c. Not taking anything for symptoms. Denies any other locations of skin changes. Related Data Allergies Allergy/AdvReac Type Severity Reaction Status Date / Time latex Allergy Intermediate Rash Verified 07/14/23 15:28 escitalopram Allergy Unknown Other Verified 07/14/23 15:28 lactose AdvReac Intermediate Diarrhea Verified 07/14/23 15:28 Review of Systems Review of Systems: CONSTITUTIONAL: Denies body aches, fever, chills, or sweats. CARDIOVASCULAR: Denies chest pain, palpitations, or edema. RESPIRATORY: Denies cough or dyspnea. GASTROINTESTINAL: Denies abdominal pain, nausea, vomiting, or diarrhea. SKIN: per HPI MUSCULOSKELETAL: Denies back pain, joint pain, or myalgia. NEUROLOGIC: Denies headache, numbness, tingling, or weakness. [facility] Past Medical History Medical History Amniotic fluid leaking Elevated temperature False labor Heart murmur Irritable bowel syndrome Migraine aura without headache PCOS (polycystic ovarian syndrome) contractions Right ankle pain Vaginal delivery Surgical History Surgical History No history of previous surgery Family History Family History Mother Diabetes mellitus Hypertension Grandparent Diabetes mellitus Skin cancer Social History Social History Social History: She is to her high school sweethear. They have been since 2019. They have a 3 point 5-year-old daughter. 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 She rarely drinks alcohol and only small amounts. She denies any illicit substance use. She is a lifelong nonsmoker. Code status: Full code Surrogate decision maker: Smoking status: Never smoker Alcohol intake: never Substance use: never Lack of Transportation: No Lack of Food: Never True Current Housing: I Have Housing Concerned About Future Housing: No Difficulty Paying Gas/Electric Bills: No Difficulty Paying for Meds: No Currently Unemployed: No Education: Bachelor's Degree Difficulty w/ Childcare or Family Care: No Gender identity (if verbalized by the patient): Female Spiritual care concerns: No Comments At time of signature, I have reviewed and agree with nursing past medical, surgical, social and family history unless otherwise noted. Please see nursing chart for further information. There is no relevant family history pertinent to the presenting complaint Exam Narrative: GENERAL: Well-appearing ENT: Mucous membranes moist. Oropharynx without edema, erythema or lesions. NECK: Supple. No lymphadenopathy CHEST: Clear to auscultation. HEART: Regular rate and rhythm. SKIN: Warm, dry. Left lateral rib abscess approx [id number] area of mild induration and tenderness, no fluctuance or drainage. pinpoint erythematous papule noted to lateral aspect. NEURO: Alert and oriented x3. Chest: Chest/axillae images: 1. area of abscess Course Course Emergency Course: Patient is aware of diagnosis, understands and agrees to treatment plan. Anticipatory guidance given. Patient agrees to follow-up as directed and is aware of reasons to seek care at the emergency department. Portions
== END 2023-07-14 15:41 | disposition home or self-care (01) ==
PROVIDERS: Emergency Provider Nurse Practitioner Family; PCP Clinical Nurse Specialist
DX: L02.213 Cutaneous abscess of chest wall (principal); R01.1 Cardiac murmur, unspecified; E28.2 Polycystic ovarian syndrome
CPT/HCPCS: 99213; G0463

== ENCOUNTER 2025-03-12 08:39 | Outpatient (CLI) | payer OTHER, SELFPAY ==
--- OUTSIDE RECORDS SUMMARY | 2025-03-12 08:52 | XMS_ITS | Data Portability ---
Author Organization [facility] Address [address] [place] [address] Care Team Providers Care Fabrication Manager Name Role Phone NATHANAEL MACE Primary Care Provider [phone] Assessment Encounter Date Assessment Date Assessment LastModified by Organization Details LastModified Time 01/08/2024 01/08/2024 Annual gynecological exam performed. Patient will come back in a year unless there are new symptoms. Suggested Calcium with Vitamin D 1200-1500mg daily. Patient advised to get an annual flu shot in the fall and she could obtain at [facility] or [facility]. Also to obtain TDap vaccination if you have not had one in the last 10 years. Recommend yearly mammograms. Encouraged monthly self breast exams. Encourage safe sexual practices, to use condoms and limit partners if not already in a monogamous relationship. Engage in daily exercise of low impact aerobic exercise 45-60 minutes 4-5 times weekly. Avoid tobacco and illicit drugs as well as using moderation with alcohol intake less than 1-2 8 oz beverages daily. This lifestyle behavior pattern will lead to less health conditions and longer life span. If BMI greater than 25 weight watchers or dietary consult advised. All questions have been answered. Patient appears to understand information, but if you have any questions please call or respond to this email. pap and cultures collected discussed colposcopy if negative and continues start myoinositol daily c/o swelling PTS sxs, check wellness labs with RANDEE and CRP Not available 01/08/2024 16:51:56 Plan of Treatment Reminders Order Date Submit Date Provider Last Modified By Organization Details Last Modified Time Details Appointments SURG Diagnosti c Lap 2024 07:30A Briseida LOPEZ MD Not available Not available Not available SURG POST OP 2024 09:00A Briseida LOPEZ MD Not available Not available Not available Lab TSH, serum or plasma 2024 025 [facility] (Lab), [address], [place], [address], 02/11/2025 04:02:20 HbA1c (hemoglob in A1c), blood 2024 025 [facility] (Lab), [address], [place], [address], 02/11/2025 04:02:20 CMP, serum or plasma 2024 025 [facility] (Lab), [address], [place], [address], 02/11/2025 04:02:20 CBC w/ auto diff 2024 025 [facility] (Lab), [address], [place], [address], 02/11/2025 04:02:21 test, urine [address] [place], [place] [id number] [address], [address], [place], [address], 02/04/2025 11:22:02 urinalysi s, dipstick [address] [place], [place] [id number] [address], [address], [place], [address], 02/04/2025 11:22:02 progester one, serum [address] [place] [address] (Lab), [address], [place], [address], 02/11/2025 04:02:19 testoster one free/test osterone total, ratio, serum 2024 025 [facility] (Lab), [address], [place], [address], 02/11/2025 04:02:19 prolactin , serum 2024 025 [facility] (Lab), [address], [place], [address], 02/11/2025 04:02:19 dhea-sulf ate, serum 2024 025 [facility] (Lab), [address], [place], [address], 02/11/2025 04:02:19 hormone panel, serum or plasma 2024 025 [facility] (Lab), [address], [place], [address], 02/11/2025 04:02:20 CBC w/ auto diff 2023 024 [facility] (Lab), [address], [place], [address], 01/09/2024 04:07:12 CMP, serum or plasma 2023 024 [facility] (Lab), [address], [place], [address], 01/09/2024 04:07:14 lipid panel, blood 2023 024 [facility] (Lab), [address], [place], [address], 01/09/2024 04:07:14 TSH, serum or plasma 2023 024 [facility] (Lab), [address], [place], [address], 01/09/2024 04:07:15 25-hydrox yvitamin D2 + 25-hydrox yvitamin D3, QN, serum or plasma 2023 024 [facility] (Lab), [address], [place], [address], 01/09/2024 04:07:15 C-reactiv e protein, quantitat mary, serum or plasma 2023 024 [facility] (Lab), [address], [place], [address], 01/09/2024 04:07:13 ESR (erythroc yte sedimenta tion rate), blood 2023 024 [facility] (Lab), [address], [place], [address], 01/09/2024 04:07:13 RANDEE (antinucl ear antibodie s) screen, serum [id number] (Lab), [address], [place], [address], 11/15/2024 08:20:12 Referral None recorded. Procedures None recorded. Surgeries laparosco py, diagnosti c (SURG) 2024 025 [id number], [facility] [address], [place], [address], 02/24/2025 14:16:25 Imaging US, pelvis [address], [facility] [address], [address], [place], [address], 02/11/2025 15:11:46 US, transvagi nal [address], [address], [place], [address], 02/11/2025 15:11:46 Medication Orders fluoxetin e 10 mg capsule 2024 025 [id number], [address], [place], [place], [id number], 02/04/2025 11:36:09 Diflucan 150 mg tablet 2022 023 [id number], [address], [place], [place], [id number], 09/21/2022 09:38:24 Patient TargetsNo targets recorded. Patient InstructionsNo instructions recorded. Reason for Referral None Reported. Results Created Date Observation Date Name Description Value Unit Range Abnormal Flag Note LastModifiedBy Organization Detail LastModifiedTime 09/22/19 23 09/21/2022 VAGIN ITIS/ VAGIN OSIS, DNA PROBE heather sp. detection, direct probe Negati ve negati ve Not Available [facility] (Lab) [address], [place], [address], 09/22/2022 09:30:14 09/22/19 23 09/21/2022 VAGIN ITIS/ VAGIN OSIS, DNA PROBE gardnerella vag. detection, direct probe Positi ve negati ve abnormal Not Available [facility] (Lab) [address], [place], [address], 09/22/2022 09:30:14 09/22/19 23 09/21/2022 VAGIN ITIS/ VAGIN OSIS, DNA PROBE trichomonas vag. detection, direct probe Negati ve negati ve Not Available [facility] (Lab) [address], [place], [address], 09/22/2022 09:30:14 01/08/20 24 01/08/2024 CBC W/DIF F WBC 6.3 10'3/ uL 3.5-10 .5 Not Available [facility] (Lab) [address], [place], [address], 01/09/2024 04:07:12 01/08/20 24 01/08/2024 CBC W/DIF F RBC 4.47 10'6/ uL (based on docume nted legal sex) 3.80-5 .20 Not Available [facility] (Lab) [address], [place], [address], 01/09/2024 04:07:12 01/08/20 24 01/08/2024 CBC W/DIF F HGB 13.7 g/dL (based on docume nted legal sex) 11.6-1 5.4 Not Available [facility] (Lab) [address], [place], [address], 01/09/2024 04:07:12 01/08/20 24 01/08/2024 CBC W/DIF F HCT 41.8 % (based on docume nted legal sex) 34.0-4 5.0 Not Available [facility] (Lab) [address], [place], [address], 01/09/2024 04:07:12 01/08/20 24 01/08/2024 CBC W/DIF F MCV 93.5 fL 80.0-9 9.0 Not Available [facility] (Lab) [address], [place], [address], 01/09/2024 04:07:12 01/08/20 24 01/08/2024 CBC W/DIF F MCH 30.6 pg 27.0-3 4.0 Not Available [facility] (Lab) [address], [place], [address], 01/09/2024 04:07:12 01/08/20 24 01/08/2024 CBC W/DIF F MCHC 32.8 g/dL 32.0-3 5.5 Not Available [facility] (Lab) [address], [place], [address], 01/09/2024 04:07:12 01/08/20 24 01/08/2024 CBC W/DIF F RDW 12.2 % 11.0-1 5.0 Not Available [facility] (Lab) [address] [place], [address], 01/09/2024 04:07:12 01/08/20 24 01/08/2024 CBC W/DIF F plt 257 10'3/ uL 150-40 0 Not Available [facility] (Lab) [address], [place], [address], 01/09/2024 04:07:12 01/08/20 24 01/08/2024 CBC W/DIF F MPV 12.0 fL 8.8-12 .1 Not Available [facility] (Lab) [address], [place], [address], 01/09/2024 04:07:12 01/08/20 24 01/08/2024 CBC W/DIF F NRBC's 0.0 % 0.0 Not Available [facility] (Lab) [address], [place], [address], 01/09/2024 04:07:12 01/08/20 24 01/08/2024 CBC W/DIF F absolute NRBCs 0.0 10'3/ uL no refere nce range establ ished Not Available [facility] (Lab) [address], [place], [address], 01/09/2024 04:07:12 01/08/20 24 01/08/2024 CBC W/DIF F neutrophils 54.9 % 34.0-7 3.0 Not Available [facility] (Lab) [address], [place], [address], 01/09/2024 04:07:12 01/08/20 24 01/08/2024 CBC W/DIF F lymphocytes 38.8 % 15.0-5 0.0 Not Available [facility] (Lab) [address], [place], [address], 01/09/2024 04:07:12 01/08/20 24 01/08/2024 CBC W/DIF F monocytes 4.5 % 1.0-15 .0 Not Available [facility] (Lab) [address], [place], [address], 01/09/2024 04:07:12 01/08/20 24 01/08/2024 CBC W/DIF F eosinophils 0.8 % 0.0-8. 0 Not Available [facility] (Lab) [address], [place], [address], 01/09/2024 04:07:12 01/08/20 24 01/08/2024 CBC W/DIF F basophils 0.8 % 0.0-2. 0 Not Available [facility] (Lab) [address], [place], [address], 01/09/2024 04:07:12 01/08/20 24 01/08/2024 CBC W/DIF F immature granulocytes 0.2 % no define d refere nce range Not Available [facility] (Lab) [address], [place], [address], 01/09/2024 04:07:12 01/08/20 24 01/08/2024 CBC W/DIF F absolute neutrophils 3.4 10'3/ uL 1.5-8. 0 Not Available [facility] (Lab) [address], [place], [address], 01/09/2024 04:07:12 01/08/20 24 01/08/2024 CBC W/DIF F absolute lymphocytes 2.4 10'3/ uL 1.0-4. 0 Not Available [facility] (Lab) [address], [place], [address], 01/09/2024 04:07:12 01/08/20 24 01/08/2024 CBC W/DIF F absolute monocytes 0.3 10'3/ uL 0.2-1. 0 Not Available [facility] (Lab) [address], [place], [address], 01/09/2024 04:07:12 01/08/20 24 01/08/2024 CBC W/DIF F absolute eosinophils 0.1 10'3/ uL 0.0-0. 6 Not Available [facility] (Lab) [address], [place], [address], 01/09/2024 04:07:12 01/08/20 24 01/08/2024 CBC W/DIF F absolute basophils 0.1 10'3/ uL 0.0-0. 3 Not Available [facility] (Lab) [address], [place], [address], 01/09/2024 04:07:12 01/08/20 24 01/08/2024 CBC W/DIF F absolute immature granulocytes 0.0 10'3/ uL 0.00-0 .10 024 1:48 AM: P indic ates parti al resul ts on a panel have been relea sed. Addit ional resul ts will follo w. 024 1:48 AM: This resul t has been final verif ied. No addit ional or almodovar ed resul ts are expec jt. Not Available [facility] (Lab) [address], [place], [address], 01/09/2024 04:07:12 01/08/20 24 01/08/2024 SEDIM ENTAT ION RATE, ESR sedimentatio n rate 2 mm/ho ur (based on docume nted legal sex) 0-20 Not Available [facility] (Lab) [address], [place], [address], 01/09/2024 04:07:13 01/08/20 24 01/08/2024 CRP (C-RE ACTIV E PROTE IN) C-reactive protein <1.0 mg/L 0.0-10 .0 Not Available [facility] (Lab) [address], [place], [address], 01/09/2024 04:07:13 01/08/20 24 01/08/2024 LIPID PANEL ,AMA (LDL- CALC) total cholesterol 191 mg/dL 0-199 Not Available [facility] (Lab) [address], [place], [address], 01/09/2024 04:07:14 01/08/20 24 01/08/2024 LIPID PANEL ,AMA (LDL- CALC) triglyceride s 84 mg/dL 0-150 NCEP Refer ence Value s for Trigl yceri charlee: Hali l: <150 mg/dL Borde rline High: 150 - 199 mg/dL High: 200 - 499 mg/dL Very High: >/= 500 mg/dL Not Available [facility] (Lab) [address] [place], [address], 01/09/2024 04:07:14 01/08/20 24 01/08/2024 LIPID PANEL ,AMA (LDL- CALC) HDL cholesterol 57 mg/dL >40 Not Available [facility] (Lab) [address] [place], [address], 01/09/2024 04:07:14 01/08/20 24 01/08/2024 LIPID PANEL ,AMA (LDL- CALC) LDL cholesterol 116 mg/dL 0-99 high Cutof f value s recom [place] by the Natio nal Jenifer stero l Educa tion Progr am: RYDER ABLE: Jenifer stero l <200 mg/dL LDL <100 mg/dL BORDE RLINE : Jenifer stero l 200-2 39 mg/dL LDL 101-1 59 mg/dL HIGHE R RISK: Jenifer stero l >240 mg/dL LDL >160 mg/dL , HDL <40 mg/dL Not Available [facility] (Lab) [address] [place], [address], 01/09/2024 04:07:14 01/08/20 24 01/08/2024 LIPID PANEL ,AMA (LDL- CALC) non-HDL cholesterol 134 mg/dL no refere nce range A reaso nable goal for non-H DL jenifer stero l is one that is 30 mg/dL highe r than the LDL jenifer stero l goal. Not Available [facility] (Lab) [address] [place], [address], 01/09/2024 04:07:14 01/08/20 24 01/08/2024 LIPID PANEL ,AMA (LDL- CALC) chol/HDL ratio 3.4 . 0.0-5. 0 On October 02, 2022, [facility] labor atori marina almodovar ed the equat ion for calcu dima g estim ated low-d ensit y lipop rotei n-cho leste rol (LDL- C) from the Fried kirby equat ion to the Dian n/Hop talha equat ion. This new equat ion is only valid for lipid panel s with trigl yceri charlee < 400 mg/dL . Studi es have demon strat ed that this new equat ion will impro ve the accur acy of LDL-C , espec ially in scena mcbride when LDL-C vince ntrat ions are relat ively low (< 100 mg/dL ), trigl yceri charlee are eleva jt, or patie nt is non-f astin g. Refer ences : - Dian crowley, Deejay Chandra, Vinicio Campbell , [facility], Javi Lawrence, Javi camarena, Juan J Decker. Omid segovia , and Hardeep Roca . 2013. Comp ariso n of a Novel Metho d vs the Fried kirby Equat ion for Estim ating Low-D ensit y Lipop rotei n Jenifer stero l Level s from the Stand michelle Lipid Profi le. DELORES: The Journ al of the Ameri can Medic al Assoc iatio n 310 19): 2060- . - Patricia goff V, Jasmyn J, Joey goff A, Veronique M, Jackelin e R, Mariano goff E, Omid segovia RS, Abelino SR, Dian crowley SS. Fast ing Versu s Nonfa sting and Low-D ensit y Lipop rotei n Jenifer stero l Accur acy. Circu latio n. 2017Jun 11;137 (1):1 0-19. Not Available [facility] (Lab) [address], [place], [address], 01/09/2024 04:07:14 01/08/20 24 01/08/2024 CMP(C OMPRE HENSI VE METAB OLIC PANEL ) sodium 138 mmol/ L 133-14 6 Not Available [facility] (Lab) [address], [place], [address], 01/09/2024 04:07:14 01/08/20 24 01/08/2024 CMP(C OMPRE HENSI VE METAB OLIC PANEL ) potassium 3.9 mmol/ L 3.5-5. 1 Not Available [facility] (Lab) [address], [place], [address], 01/09/2024 04:07:14 01/08/20 24 01/08/2024 CMP(C OMPRE HENSI VE METAB OLIC PANEL ) chloride 103 mmol/ L 98-107 Not Available [facility] (Lab) [address], [place], [address], 01/09/2024 04:07:14 01/08/20 24 01/08/2024 CMP(C OMPRE HENSI VE METAB OLIC PANEL ) carbon dioxide 29 mmol/ L 21-31 Not Available [facility] (Lab) [address], [place], [address], 01/09/2024 04:07:14 01/08/20 24 01/08/2024 CMP(C OMPRE HENSI VE METAB OLIC PANEL ) anion gap 6 mmol/ L 4-13 Not Available [facility] (Lab) [address], [place], [address], 01/09/2024 04:07:14 01/08/20 24 01/08/2024 CMP(C OMPRE HENSI VE METAB OLIC PANEL ) blood urea nitrogen 10 mg/dL 7-25 Not Available [facility] (Lab) [address], [place], [address], 01/09/2024 04:07:14 01/08/20 24 01/08/2024 CMP(C OMPRE HENSI VE METAB OLIC PANEL ) creatinine 0.70 mg/dL 0.60-1 .30 Not Available [facility] (Lab) [address], [place], [address], 01/09/2024 04:07:14 01/08/20 24 01/08/2024 CMP(C OMPRE HENSI VE METAB OLIC PANEL ) egfrcr (CKD-epi 2020) >90 mL/mi n/1.7 3_m2 >=60 Not Available [facility] (Lab) [address], [place], [address], 01/09/2024 04:07:14 01/08/20 24 01/08/2024 CMP(C OMPRE HENSI VE METAB OLIC PANEL ) calcium 9.8 mg/dL 8.3-10 .5 Not Available [facility] (Lab) [address], [place], [address], 01/09/2024 04:07:14 01/08/20 24 01/08/2024 CMP(C OMPRE HENSI VE METAB OLIC PANEL ) glucose 91 mg/dL 70-100 Not Available [facility] (Lab) [address], [place], [address], 01/09/2024 04:07:14 01/08/20 24 01/08/2024 CMP(C OMPRE HENSI VE METAB OLIC PANEL ) protein, total 7.1 g/dL 6.4-8. 3 Not Available [facility] (Lab) [address], [place], [address], 01/09/2024 04:07:14 01/08/20 24 01/08/2024 CMP(C OMPRE HENSI VE METAB OLIC PANEL ) albumin 4.6 g/dL 3.5-5. 0 Not Available [facility] (Lab) [address], [place], [address], 01/09/2024 04:07:14 01/08/20 24 01/08/2024 CMP(C OMPRE HENSI VE METAB OLIC PANEL ) ALT 10 units /L 9-43 Not Available [facility] (Lab) [address], [place], [address], 01/09/2024 04:07:14 01/08/20 24 01/08/2024 CMP(C OMPRE HENSI VE METAB OLIC PANEL ) alkaline phosphatase 50 units /L 34-104 Not Available [facility] (Lab) [address], [place], [address], 01/09/2024 04:07:14 01/08/20 24 01/08/2024 CMP(C OMPRE HENSI VE METAB OLIC PANEL ) AST 12 units /L 13-39 low Not Available [facility] (Lab) [address], [place], [address], 01/09/2024 04:07:14 01/08/20 24 01/08/2024 CMP(C OMPRE HENSI VE METAB OLIC PANEL ) bilirubin, total 0.6 mg/dL 0.2-1. 2 Not Available [facility] (Lab) [address], [place], [address], 01/09/2024 04:07:14 01/08/20 24 01/08/2024 TSH, REFLE X FREE T4 TSH 1.58 uIU/m L 0.30-5 .33 Not Available [facility] (Lab) [address] [place], [address], 01/09/2024 04:07:14 01/08/20 24 01/08/2024 VITAM IN D, 25-OH (TOTA L D2/D3 ) vitamin D, 25-hydroxy, total 25.0 NG/mL 30.0-1 00.0 low Sugge stive of Defic iency : <20 ng/mL Sugge stive of Insuf ficie ncy: 20-29 ng/mL Sugge stive of Suffi cienc y: 30-10 0 ng/mL Sugge stive of Toxic ity: >150 ng/mL Not Available [facility] (Lab) [address], [place], [address], 01/09/2024 04:07:15 01/08/20 24 01/08/2024 VAGIN ITIS/ VAGIN OSIS, DNA PROBE heather sp. detection, direct probe Negati ve negati ve Not Available [facility] (Lab) [address], [place], [address], 01/09/2024 14:40:21 01/08/20 24 01/08/2024 VAGIN ITIS/ VAGIN OSIS, DNA PROBE gardnerella vag. detection, direct probe Positi ve negati ve abnormal Not Available [facility] (Lab) [address], [place], [address], 01/09/2024 14:40:21 01/08/20 24 01/08/2024 VAGIN ITIS/ VAGIN OSIS, DNA PROBE trichomonas vag. detection, direct probe Negati ve negati ve Not Available [facility] (Lab) [address], [place], [address], 01/09/2024 14:40:21 01/08/20 24 01/08/2024 CT/GC (BHANU) , SWAB chlamydia trachomatis, PCR Negati ve negati ve Not Available [facility] (Lab) [address] [place], [address], 01/09/2024 14:40:21 01/08/20 24 01/08/2024 CT/GC (BHANU) , SWAB neisseria gonorrhoeae, PCR Negati ve negati ve Not Available [facility] (Lab) [address], [place], [address], 01/09/2024 14:40:21 01/08/20 24 01/08/2024 IMAGE GUIDE D PAP, REFLE X HPV IF ASCUS ONLY image guided Pap, reflex HPV ASCUS only SEE RESULT S BELOW CASE REPOR T: Cytol ogy Gynec ologi terrie Repor t Case: [id number] Autho thomas g Provi garett: Rosa Maria Phillip NP Colle cted: 01/07 1724 Order ing Locat ion: [place] Patho loc Chaya monica: 01/08 1008 First Merly n: Afia Phillip Speci men: Scree mala Pap - Image d, Cervi x STATE MENT OF ADEQU ACY: Satis facto ry for evalu ation Trans forma tion zone compo nent prese nt ----- ----- ----- ----- ----- ----- ----- ----- ----- ----- ----- ----- ----- ----- ----- ----- ----- ---- FINAL DIAGN OSIS: Negat mary for Intra epith elial Owen crowley or Zakia cruz (NIL) . Elect ciro anglin by Afia Phillip on 024 at 2:04 PM ----- ----- ----- ----- ----- ----- ----- ----- ----- ----- ----- ----- ----- ----- ----- ----- ----- ---- COMME NT: This speci men was revie wed by a Cytot echno logis t and/o r Patho logis t (as indic ated in this repor t) after evalu ation using the Thinp rep Imagi ng Syste m. CLINI TERRIE INFOR MATIO N: Menst rual Statu s: LMP (if appli cable ): Clini terrie Histo ry/Pr eviou s Pap: Type of Neopl mariya (if appli cable ): Signi fican t Clini terrie Findi ngs: Other Histo ry: Hormo augustine (if appli cable ): PAP EDUCA CASEY L NOTE: The Pap Test is a scree mala test with an inher ent false negat mary rate. Liqui d-bas ed sampl ing may decre ase, but will not elimi chirag, false negat mary resul ts. A negat mary resul t does not precl ude the prese nce and/o r devel opmen t of disea se, since the prese nce of abnor mal cells in the sampl e depen ds on the locat ion of the lesio n and sampl ing techn ique. Jerry nued regul ar scree mala is the best metho d of cance r preve ntion . If repor jt cytol ogic findi ng do not corre late with physi terrie and/o r histo rical findi ngs, furth er inves tigat ion is recom [place] d, as clini leigha angulo nted. Not Available [facility] (Lab) [address], [place], [address], 01/15/2024 15:07:33 02/05/20 25 02/04/2025 urina lysis , dipst ick Leukocytes - Not Available [facility] [address], [place], [address], 02/04/2025 11:17:55 02/05/20 25 02/04/2025 urina lysis , dipst ick Nitrite - Not Available [place] [address], [place], [address], 02/04/2025 11:17:55 02/05/20 25 02/04/2025 urina lysis , dipst ick Urobilinogen - Not Available [facility] [address], [place], [address], 02/04/2025 11:17:55 02/05/20 25 02/04/2025 urina lysis , dipst ick Protein trace Not Available [facility] [address], [place], [address], 02/04/2025 11:17:55 02/05/20 25 02/04/2025 urina lysis , dipst ick pH 5 Not Available [facility] [address], [place], [address], 02/04/2025 11:17:55 02/05/20 25 02/04/2025 urina lysis , dipst ick Specific [place] 1.025 Not Available [facility] [address], [place], [address], 02/04/2025 11:17:55 02/05/20 25 02/04/2025 urina lysis , dipst ick Ketone - Not Available [facility] [address], [place], [address], 02/04/2025 11:17:55 02/05/20 25 02/04/2025 urina lysis , dipst ick Bilirubin - Not Available [facility] [address], [place], [address], 02/04/2025 11:17:55 02/05/20 25 02/04/2025 urina lysis , dipst ick Glucose - Not Available [place] [address], [place], [address], 02/04/2025 11:17:55 02/05/2002/04/2025 urina lysis , dipst ick Appearance clear Not Available [facility] [address], [place], [address], 02/04/2025 11:17:55 02/05/2002/04/2025 urina lysis , dipst ick Color light yellow Not Available [facility] [address], [place], [address], 02/04/2025 11:17:55 02/05/20 25 02/04/2025 pregn celi test, urine HCG negati ve Not Available [facility] [address], [place], [address], 02/04/2025 11:17:54 02/12/20 25 02/11/2025 US, pelvi s No observ ation record ed. [email or web address] [place] [address], [place], [address], 02/11/2025 12:56:06 02/12/20 25 02/11/2025 US, trans vagin al No observ ation record ed. [email or web address] [place] [address], [place], [address], 02/11/2025 12:56:15 02/12/20 25 02/11/2025 [place], pelvi s No observ ation record ed. [email or web address] [address], [place], [address], 02/24/2025 10:02:39 Result Notes None recorded. Problems Name Problem SNOMED Code Status Onset Date Resolution Date Notes Provider Name and Address Organization Details Recorded Time Abnormal weight gain 161441830 Completed 201707/20/2020 Abnormal weight gain;Rec orded Elsewher e: No Locat ion: [facility] ource: EHR Calf Skinner elyse: N Nabeelti ce ID: 0001 Jayce lable Time: 09:45:00 AM Lanny magallon [facility] 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 18:07:11 Uses combined oral contrace ption [id number] Completed 201707/20/2020 Encounte r for surveill ance of contrace ptive pills;Pr actice ID: 0001 Lanny magallon, [facility] 18:07:04 Bleeding Completed 201707/20/2020 Abnormal uterine and vaginal bleeding , unspecif ied;Homer rded Elsewher e: No Locat ion: [facility] ource: EHR Calf Skinner elyse: N Practi ce ID: 0001 Jayce lable Time: 05:45:00 PM Lanny Troytz sherita [facility] 18:07:10 Pregnanc y test negative [id number] Completed 201807/20/2020 Encounte r for pregnanc y test, result negative ;Recorde d Elsewher e: No Locat ion: [facility] our[facility]: EHR Calf Skinner elyse: N Practi ce ID: 0001 Jayce lable Time: 09:15:00 AM Lanny Troytz sherita [facility] 18:07:42 Gestatio n less than 9 weeks [id number] Completed 201807/20/2020 Less than 8 weeks gestatio n of pregnanc y;Record ed Elsewher e: No Locat ion: [facility] ource: EHR Calf Skinner elyse: N Practi ce ID: 0001 Jayce lable Time: 10:00:00 AM Lanny Troytz sherita [facility] 18:07:[address] Concept Completed 201807/20/2020 Encntr for silk opener exam (general ) (routine ) w/o abn findings ;Recorde d Elsewher e: No Locat ion: [facility] our[facility]: EHR Calf Skinner elyse: N Practi ce ID: 0001 Jayce lable Time: 09:15:00 AM Lanny Hines sherita, [facility] 18:08:06 Uterine size for dates discrepa ncy Completed 201807/20/2020 Uterine size-anai e discrepa ncy, first trimeste r;Record ed Elsewher e: No Locat ion: Sandi lentz [facility] S ource: EHR Calf Skinner elyse: N Practi ce ID: 0001 Jayce lable Time: 10:00:00 AM Lanny magallon, [facility] 18:08:21 Pregnanc y detectio n examinat ion Completed 201807/20/2020 Encounte r for pregnanc y test, result positive ;Recorde d Elsewher e: No Locat ion: [facility] our[facility]: EHR Calf Skinner elyse: N Practi ce ID: 0001 Jayce lable Time: 09:15:00 AM Lanny magallon, [facility] 18:07:40 Threaten ed miscarri age [id number] Completed 201807/20/2020 Threaten ed ;Recorde d Elsewher e: No Locat ion: [facility] ource: EHR Calf Skinner elyse: N Practi ce ID: 0001 Jayce lable Time: 04:15:00 PM Lanny magallon, [facility] 18:08:19 Gestatio n period, 11 weeks [id number] Completed 201807/20/2020 11 weeks gestatio n of pregnanc y;Record ed Elsewher e: No Locat ion: [facility] ource: EHR Calf Skinner elyse: N Practi ce ID: 0001 Jayce lable Time: 04:15:00 PM Lanny magallon, [facility] 18:07:16 Antenata l screenin g Completed 201807/20/2020 Encounte r for antenata l screenin g for nuchal transluc ency;Rec orded Elsewher e: No Locat ion: Sandi lentz [facility] S ource: EHR Calf Skinner elyse: N Practi ce ID: 0001 Jayce lable Time: 02:00:00 PM Lanny Hines sherita, [facility] 18:06:57 Pregnanc y, childbir th and puerperi um finding Completed 201807/20/2020 Encntr for suprvsn of normal first preg, second trimeste r;Record ed Elsewher e: No Locat ion: [facility] our[facility]: EHR Calf Skinner elyse: N Practi ce ID: 0001 Jayce lable Time: 02:30:00 PM Lanny Hines [facility], [facility] 18:07:50 Pregnanc y, childbir th and puerperi um finding Completed 201807/20/2020 Encntr for suprvsn of normal first preg, first trimeste r;Practi ce ID: 0001 Lanny Hines sherita, [facility] 18:07:47 Antenata l screenin g for malforma tion Completed 201807/20/2020 Encounte r for antenata l screenin g for malforma tions;Re corded Elsewher e: No [facility]: N Practi ce ID: 0001 Jayce lable Time: 04:45:00 PM Lanny Hines sherita, [facility] 18:06:59 Pregnanc y, childbir th and puerperi um finding Completed 201807/20/2020 Encounte r for supervis ion of normal 1st pregnanc y;Record ed Elsewher e: No [facility]: N Practi ce ID: 0001 Jayce lable Time: 06:00:00 PM Lanny Hines sherita [facility] 18:07:45 Gestatio n period, 27 weeks [id number] Completed 201807/20/2020 27 weeks gestatio n of pregnanc y;Record ed Elsewher e: No Locat ion: Sandi lentz [facility] S ource: EHR Calf Skinner elyse: N Sana ce ID: 0001 Jayce lable Time: 09:30:00 AM Lanny magallon, [facility] 18:07:18 Spotting per vagina in pregnanc y [id number] Completed 201807/20/2020 Spotting complica ting pregnanc y, second trimeste r;Record ed Elsewher e: No Locat ion: Sandi lentz [facility] S ource: EHR Calf Skinner elyse: N Nabeelti ce ID: 0001 Jayce lable Time: 09:30:00 AM Lanny magallon, [facility] 18:08:16 Pregnanc y, childbir th and puerperi um finding Completed 201807/20/2020 Encntr for suprvsn of normal first preg, third trimeste r;Record ed Elsewher e: No Locat ion: Sandi lentz [facility] S ource: EHR Calf Skinner elyse: N Sana ce ID: 0001 Jayce lable Time: 02:45:00 PM Lanny magallon, [facility] 18:07:[address] Concept Completed 201807/20/2020 Maternal care for oth problems , third trimeste r, unsp;Pra ctice ID: 0001 Lanny magallon, [facility] 18:08:[address] Concept Completed 201807/20/2020 Matern care for abnlt fetl hrt rate or rhym, 3rd tri, unsp;Rec orded Elsewher e: No Locat ion: Sandi lentz [facility] S ource: EHR Calf Skinner elyse: N Sana ce ID: 0001 Jayce lable Time: 02:30:00 PM Lanny magallon [facility] 18:08:02 Gestatio n period, 32 weeks [id number] Completed 201807/20/2020 32 weeks gestatio n of pregnanc y;Record ed Elsewher e: No Locat ion: Sandi lentz [facility] S ource: EHR Calf Skinner elyse: N Practi ce ID: 0001 Jayce lable Time: 03:00:00 PM Lanny Hines sherita, [facility] 18:07:20 False labor before 37 complete d weeks of gestatio n [id number] Completed 201807/20/2020 False labor before 37 complete d weeks of gest, third tri;Prac artemio ID: 0001 Lannymaribel magallon, [facility] 18:07:07 Prematur e labor [id number] Completed 201807/20/2020 labor without delivery , third trimeste r;Record ed Elsewher e: No Locat ion: Sandi tor [facility] S ource: EHR Calf Skinner elyse: N Practi ce ID: 0001 Jayce lable Time: 11:00:00 AM Lanny magallon, [facility] 18:07:55 Uterine size for dates discrepa ncy Completed 201807/20/2020 Uterine size-anai e discrepa ncy, third trimeste r;Record ed Elsewher e: No Locat ion: Sandi lentz [facility] S ource: EHR Calf Skinner elyse: N Practi ce ID: 0001 Jayce lable Time: 02:00:00 PM Lanny magallon, [facility] 18:08:23 Insuffic ient weight gain of pregnanc y [id number] Completed 201807/20/2020 Low weight gain in pregnanc y, third trimeste r;Record ed Elsewher e: No Locat ion: Sandi lentz [facility] S ource: EHR Calf Skinner elyse: N Practi ce ID: 0001 Jayce lable Time: 02:00:00 PM Lanny magallon, [facility] 18:07:30 Gestatio n period, 36 weeks [id number] Completed 201807/20/2020 36 weeks gestatio n of pregnanc y;Record ed Elsewher e: No Locat ion: Sandi lentz [facility] S ource: EHR Calf Skinner elyse: N Nabeelti ce ID: 0001 Jayce lable Time: 02:00:00 PM Lanny magallon, [facility] 18:07:[address] Concept Completed 201807/20/2020 Decrease d movement s, third trimeste r, unsp;Rec orded Elsewher e: No Locat ion: Sandi [facility] S ource: EHR Calf Skinner elyse: N Sana ce ID: 0001 Jayce lable Time: 03:00:00 PM aLnny magallon, [facility] 18:07:59 Gestatio n period, 38 weeks [id number] Completed 201807/20/2020 38 weeks gestatio n of pregnanc y;Record ed Elsewher e: No Locat ion: [facility] ource: EHR Calf Skinner elyse: N Sana ce ID: 0001 Jayce lable Time: 03:00:00 PM Lanny magallon, [facility] 18:07:24 Lacerati on of female perineum Completed 201807/20/2020 First degree perineal lacerati on during delivery ;Practic e ID: 0001 Lanny magallon, [facility] 18:07:34 Single live from singleto n pregnanc y [id number] Completed 201807/20/2020 Single live ;Pr actice ID: 0001 Lanny magallon, [facility] 18:07:57 Gestatio n period, 39 weeks [id number] Completed 201807/20/2020 39 weeks gestatio n of pregnanc y;Sana ce ID: 0001 Lanny magallon [facility] 18:07:26 Lochia finding Completed 201907/20/2020 Encounte r for routine postpart um follow-u p;Sana ce ID: 0001 Lanny magallon, [facility] 18:07:37 Clinical finding Completed 201907/20/2020 Presence of (intraut erine) contrace ptive device;R ecorded Elsewher e: No [facility]: EHR Calf Skinner elyse: N Sana ce ID: 0001 Jayce lable Time: 05:00:00 PM Lanny magallon [facility] 18:07:02 Problem Notes None recorded. Procedures Surgical History Date Name Laterality Status Provider Name and Address Organization Details Recorded Time 01/08/20 24 Date of Last Pap Smear completed Lanny Troytz [facility] 01/08/2024 16:13:18 04/11/20 22 IUD Removal completed Rosa Maria Nesbitt CNM [address], [place], [address], [facility] 04/11/2022 11:42:01 06/10/19 11 extraction of wisdom tooth completed Lanny Hines [facility] 04/11/2022 11:08:48 Imaging Results None recorded. Procedure Notes None recorded. Medical Equipment None Reported. Allergies Allergen ID Allergen Name Allergen Category Reaction Reaction Severity Criticality Documentation Date Start Date Code Code System Note Provider Name and Address Organization Details Recorded Time 91111 latex environme nt,medica tion Not available Not available Not available 05/27/2020 72392 91 RxNorm Comme nt: Locat [facility]; Not Available [employer] 0 14:20:56 Medications Name Sig Start Date Stop Date Status Note LastModified by Organization Details LastModified Time cyclobenz aprine 10 mg tablet TAKE 1 TABLET BY MOUTH EVERY 8 HOURS FOR 7 DAYS NEEDED FOR MUSCLE SPASM 09/21 completed Not Available Not Available Not Available Mirena 21 mcg/24 hr (up to 8 years) 52 mg intrauter ine device as directed 04/11 completed Prescrib ed Elsewher e: No Locat ion: Sandi lentz [facility] odify By: buddy barton DateTime : 07/01/19 05:00:00 PM Not Available Not Available Not Available fluconazo le 150 mg tablet TAKE 1 TABLET BY MOUTH NOW FOR 48 HOURS 01/07 completed Not Available Not Available Not Available Loestrin Fe 06/29 (28-Day) 1 mg-20 mcg (21)/75 mg (7) tablet take 1 tablet by oral route every day 04/07 completed Prescrib ed Elsewher e: No Locat ion: Sandi lentz [facility] odify By: ramona vila DateTime : 12/25/19 09:45:00 AM Not Available Not Available Not Available metronida zole 500 mg tablet Take 1 tablet every 12 hours by oral route for 7 days. 02/04 completed Not Available Not Available Not Available acetamino phen 500 mg tablet TAKE 1 TABSULE BY MOUTH EVERY 6 HOURS NEEDED FOR PAIN 01/07 completed Not Available Not Available Not Available cephalexi n 500 mg capsule TAKE 1 CAPSULE BY MOUTH EVERY 8 HOURS FOR 7 DAYS 01/07 completed Not Available Not Available Not Available fluoxetin e 10 mg capsule Take 10 mg PO once daily during the luteal phase of menstrua l cycle only (beginni ng therapy 14 days before anticipa jt onset of menstrua tion and continue d to the onset of menses) 2024 active Not Available Not Available Not Avai lable norethind victor manuel acetate 5 mg tablet take 1 tablet by oral route every day for the first ten days of each month 08/21 completed Prescrib ed Elsewher e: No Locat ion: Sandi [facility] odify By: [email or web address] Encounte r DateTime : 04/23/20 03:29:05 PM Not Available Not Available Not Available polyethyl harry glycol 3350 17 gram/dose oral powder TAKE 17 GRAMS BY MOUTH DAILY 01/07 completed Not Available Not Available Not Available Vitamin D2 1,250 mcg (50,000 unit) capsule take 1 capsule by oral route every week for 8 weeks 08/21 completed Prescrib ed Elsewher e: No Locat ion: Sandi lentz [facility] odify By: bj Encounte r DateTime : 02/26/20 02:44:27 PM Not Available Not Available Not Available dicyclomi ne 10 mg capsule TAKE 1 CAPSULE BY MOUTH TWICE DAILY 01/07 completed Not Available Not Available Not Available Ortho Tri-Cycle n (28) 0.18 mg(7)/0.2 15mg(7)/0 .25 mg(7)-0.0 35 mg tablet take 1 tablet by oral route every day 01/01 completed Prescrib ed Elsewher e: Yes Loca tion: Sandi lentz [facility] odify By: [email or web address] Lentz ncounter DateTime : 12/25/19 09:45:00 AM Not Available Not Available Not Available naproxen 500 mg tablet TAKE 1 TABLET BY MOUTH TWICE DAILY FOR 7 DAYS NEEDED FOR PAIN 09/21 completed Not Available Not Available Not Available Dialyvite Vitamin D3 Max 1,250 mcg (50,000 unit) tablet TAKE 1 TABLET BY MOUTH WEEKLY 02/04 completed Not Available Not Available Not Available Vitamin D3 Complete 18 mg iron-800 mcg-150 mg tablet 07/20 completed Prescrib ed Elsewher e: Yes Loca tion: Sandi lentz [facility] odify By: bj Encounte r DateTime : 08/22/19 09:15:00 AM Not Available Not Available Not Available 28 mg-800 mcg tablet 07/20 completed Prescrib ed Elsewher e: Yes Loca tion: Sandi lentz [facility] odify By: [email or web address] Encount er DateTime : 02/06/20 05:00:00 PM Not Available Not Available Not Available Vitals Date Recorded Body height Body mass index (BMI) Body weight Systolic And Diastolic Provider Name and Address Organization Details Last Updated DateTime 09/21/2022 152.4 cm 28.5 kg/m2 42985.49 g 122/88 mm[Hg] Lanny Hines [facility] 09/21/2022 09:26:20 Date Recorded Body height Body mass index (BMI) Body weight Systolic And Diastolic Provider Name and Address Organization Details Last Updated DateTime 01/08/2024 152.4 cm 30.7 kg/m2 27842 g 133/89 mm[Hg] Lanny Hines [facility] 01/08/2024 16:11:54 Date Recorded Body height Body mass index (BMI) Body weight Systolic And Diastolic Provider Name and Address Organization Details Last Updated DateTime 02/04/2025 152.4 cm 30.9 kg/m2 26623.03 g 121/82 mm[Hg] Kenzie Fidelia [facility] 02/04/2025 11:05:37 Date Recorded Body height Body mass index (BMI) Body weight Systolic And Diastolic Provider Name and Address Organization Details Last Updated DateTime 02/24/2025 152.4 cm 30.7 kg/m2 78175 g 117/79 mm[Hg] Yanni Rosas [facility] 02/24/2025 09:53:21 Social History Question Answer Notes LastModified by Organizat ion Details LastModified Time Tobacco Smoking Status Never Smoker Lanny magallon, [facility] 04/11/2022 11:07:34 Do You Have An Advance Directive? No [email or web address] Information n ot available 04/11/2022 If You Are , What Was Your Level Of Alcohol Consumption Prior To ? None [email or web address] Information not available 04/11/2022 How Many Years Have You Consumed Alcohol? 7 [email or web address] Information not available 04/11/2022 Are You Blind Or Do You Have Difficulty Seeing? No [email or web address] Information n ot available 04/11/2022 What Is Your Level Of Caffeine Consumption? Moderate [email or web address] Information not available 01/08/2024 How Much Tobacco Do You Chew? None Information not available 04/11/2022 In The 14 Days Before Symptom Onset, Have You Had Close Contact With A Laboratory-confirm ed COVID-19 While That Case Was Ill? No [email or web address] Information n ot available 04/11/2022 In The 14 Days Before Symptom Onset, Have You Had Close Contact With A Person Who Is Under Investigation For COVID-19 While That Person Was Ill? No Information not available 04/11/2022 Have You Been To An Area Known To Be High Risk For COVID-19? No [email or web address] Information not available 04/11/2022 Are You Deaf Or Do You Have Serious Difficulty Hearing? No [email or web address] Information not available 04/11/2022 What Type Of Diet Are You Following? REGULAR [email or web address] Information n ot available 04/11/2022 What Is The Highest Grade Or Level Of School You Have Completed Or The Highest Degree You Have Received? HT86160-2 [email or web address] Information not available 04/11/2022 Are There Any Guns Present In Your Home? No [email or web address] Information not available 04/11/2022 Have You Ever Been Counseled For Unhealthy Alcohol Use? No [email or web address] Information not available 04/11/2022 Do You Use Protection During Sex? No [email or web address] Information not available 04/11/2022 Do You Use Your Seat Belt Or Car Seat Routinely? Yes [email or web address] Information not available 04/11/2022 Do You Have Smoke And Carbon Monoxide Detectors In Your Home? Yes [email or web address] Information not available 04/11/2022 How Much Tobacco Do You Smoke? No [email or web address] Information not available 04/11/2022 Do You Use Sunscreen Routinely? Yes [email or web address] Information not available 04/11/2022 Has Tobacco Cessation Counseling Been Provided? No [email or web address] Information not available 04/11/2022 Have You Used IV Drugs? No [email or web address] Information not available 04/11/2022 Do You Have Difficulty Walking Or Climbing Stairs? No [email or web address] Information not available 04/11/2022 Sex: Unknown Functional Status Question Answer Note LastModified by Organizat ion Details LastModified Time Do you use any illicit or recreational drugs? No [email or web address] Information not available 07/20/2020 Do you or have you ever used any other forms of tobacco or nicotine? No [email or web address] Information not available 04/11/2022 What is your level of alcohol consumption? Occasional [email or web address] Information not available 07/20/2020 Are you able to walk independently without assistance or assistive devices? YESWOREST Information not available 04/11/2022 Are you able to care for yourself independently? 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 No [email or web address] Information not available 04/11/2022 What is your exercise level? Moderate [email or web address] Information not available 01/08/2024 Mental Status Question Answer Note LastModified by Organization D etails LastModified Time Do you feel stressed (tense, restless, nervous, or anxious, or unable to sleep at night)? [id number] [email or web address] Information not available 01/08/2024 Family History Relationship Description Onset Age of this Age Resolved Age Notes LastModified by Organization Details LastModified Time Mother Hypercholest katherinia [email or web address] Not available 07/20 19:52:35 Mother Hypertensive disorder [email or web address] Not available 07/20 19:52:58 Mother Asthma [email or web address] Not available 07/20/2020 19:53:15 Maternal Grandmother Hypertensive disorder [email or web address] Not available 07/20 19:52:58 Maternal Grandmother Asthma [email or web address] Not available 03/2021 19:53:15 Maternal Grandmother Diabetes mellitus [email or web address] Not available 07/20 19:53:34 Maternal Grandmother Psychiatric symptom [email or web address] Not available 2023 15:29:45 Maternal Grandfather Hypertensive disorder [email or web address] Not available 07/20 19:52:58 Maternal Grandfather Malignant neoplasm of lung [email or web address] Not available 07/20 19:53:23 Maternal Grandfather Malignant neoplasm of skin [email or web address] Not available 2023 15:29:45 Notes:Maternal grandfather: Hypertension, Cancer, lung Maternal grandmother: Hypertension, psychiatric disease, Diabetes mellitus, Asthma Mother: High cholesterol, Asthma, Hypertension Medical History Condition Response Allergies (Food, seasonal, environmental ) N Other N Breast Cancer N Drug/Latex Allergies/Reactions Y Blood Transfusion N Dermatologic Disorders N Lung Disease N Defects or Inherited Disease N Breast Problem N Gestational Diabetes N Hematologic disorders N Anesthesia Complications N History of STI N Deep Vein Thrombosis N Polycystic ovary syndrome Y Anxiety Disorder N Autoimmune disease N Arthritis N Infertility N Polyps N Acid Reflux (GERD) Y History of abnormal pap N Cancer N Stroke N Varicosities N Neurologic/Epilepsy N Endometriosis N High Cholesterol Y Headaches Y Fibromyalgia N Kidney Disease N Heart Problems N Kidney or Bladder Problems N Thyroid Problems N GI Problems Y Eating Disorder N Anemia Y Art (IVF or FET) N Psychiatric Illness N Ovarian Cancer N Diabetes N Pulmonary (TB, Asthma) N Hepatitis/Liver Disease N Eczema Y Urinary Tract Infection N Abuse/Domestic Violence N Asthma N Trauma/Violence N Depression/ depression N Heart Disease N Pre-Eclampsia N Hypertension N Osteoporosis N Thrombophilias N Gynecological History Statement/Question Response Abnormal Pap N Flow Heavy Date of Last Mammogram Date of LMP 02/03/2025 N On BCP's at Conception? N STIs/STDs N Was last menstrual period normal N HPV Vaccine Y Current Control Method None Age at First Child 24 Date of control 06/14/2019 Are cycles usually normal N Sexually Active? Y Menses Monthly Y Date of DEXA bone scan Age of first menstrual cycle 11 Date of Last Pap Smear 01/08/2024 Sexual Problems? N LMP Definite Desired Control Method None N Obstetrics History GPAL:G 1 P 1 0 0 1 Type Value Full Term 1 Living 1 Total 1 Past Encounters Encounter ID Performer Location Encounter Start Date Encounter Closed Date Diagnosis/Indication Diagnosis SNOMED-CT Code Diagnosis ICD10 Code Diagnosis IMO Codes Diagnosis Note [id number] Rosa Maria Nesbitt CNM [place] [address],[facility] [place] [address] 07/20/2020 17:33:54 07/20/2020 23:00:21 Gynecologic examination 64314987 Z01.419 [id number] Rosa Maria Nesbitt CNM [place] [address],[place] [address] 04/11/2022 10:45:48 04/11/2022 12:16:09 Removal of intrauterine device 83209408 Z30.432 [id number] Paulo Lopez MD [place] [address],[place] [address] 03/13/2021 17:13:01 03/14/2021 18:53:56 Surveillance of contraception 980554502 Z30.40 [id number] Rosa Maria Nesbitt [facility] [address],[place] [address] 09/21/2022 09:11:31 09/21/2022 09:46:32 Yeast detected 078164482 R89.5 precaution s reviewed, affirm sent f/u as needed Rosa Maria Nesbitt [facility] [address],[place] [address] 01/08/2024 15:27:48 01/08/2024 17:25:13 Gynecologic examination 19392402 Z01.419 Joint swelling 284601391 M25.40 [id number] MELISSA CRYSTAL NP [place] [address],[place] [address] 02/04/2025 10:49:29 02/04/2025 11:51:13 Pain in pelvis [id number] R10.2 37445 Recommende d pelvic ultrasound to r/o uterine or ovarian abnormalit ies contributi ng to pelvic pain/sever e dysmenorrh ea. Reviewed possible causes of chronic pelvic pain and heavy periods. Patient concerned about diagnosis of endometrio sis. Reviewed endometrio sis in general, symptoms attributab le to it, and potential effects on future fertility. Discussed chronic nature of disease, and frequent need for suppressio n until menopause. Reviewed medical therapies (pros/cons , risks/bene fits of each) and surgical approaches to treatment, including conservati ve procedures and definitive surgery. Pelvic ultrasound ordered; patient to schedule f/u appointmen t with MD to discuss results and next recommende d steps in plan of care, including surgical options. Premenstru al tension syndrome [id number] N94.3 82447 Discussed that patient's symptoms suggest PMS/PMDD. Discussed that premenstru al syndrome (PMS) is characteri zed by the presence of both physical and behavioral symptoms that occur repetitive ly in the second half of the menstrual cycle and interfere with some aspects of the woman's life. The [employer] defines premenstru al dysphoric disorder (PMDD) as a severe form of PMS in which symptoms of anger, irritabili ty, and internal tension are prominent. Since patient prefers to stay off of hormonal contracept ion, we discussed three SSRI regimens for the management of moderate to severe symptoms: continuous daily administra tion, luteal-pha se therapy, or symptom-on set therapy.Di scussed that side effects of SSRIs are dose dependent, occur in approximat marisa 15 percent of patients, and are the most common reason for discontinu ing treatment. These include nausea, headache, insomnia, and decreased libido. Nausea, the most common side effect, usually resolves within four to five days and does not recur if treatment is given intermitte ntly (luteal phase only). To minimize side effects, we suggest initiating therapy with a low dose and increasing as needed. Patient interested in luteal phase therapy. Rx sent for fluoxetine 10 mg PO daily starting day 14 of cycle continued until onset of menses. RTO in 3 months for medication check. Discussed increasing dose of medication to 20 mg or changing to continuous daily administra tion if symptoms do not improve. Patient verbalized understand ing. Menorrhagia [id number] N9 2.0 [id number] Today we discussed multiple options for menorrhagi a including: IUD's, Patch, Ring, Pills, Nexplanon, Lysteda; Endometria l ablation (requires MD consult). We discussed if any are contraindi cated with her current health Hx. Patient reports that she would prefer to stay off hormonal BC as she and her are actively trying to conceive x 2 years. Labs ordered. [id number] Paulo Lopez MD [place] [address],[place] [address] 02/11/2025 09:35:46 02/11/2025 10:29:16 Pain in pelvis [id number] R10.2 N92.0 146396 [id number] Paulo Lopez MD [place] [address],[place] [address] 02/24/2025 09:22:14 02/24/2025 10:56:05 Pain in pelvis [id number] R10.2 09203 Health Concerns Section Related Observation LastModified by Organization Detai ls LastModified Time None Recorded Concern Status LastModified by Organization Details LastModified Time None Recorded Advance Directives Directive N: Payers Insurance Date Sequence Insurance Name Policy Number Policy Loza Covered Member ID Loza Member ID Guarantor Name 02/04/2025 1 [facility] [id number] Pepper Galbierz [id number] Pepper Galbierz 02/21/2025 1 [facility] (PPO) [id number] Pepper Galbierz [id number] Pepper Galbierz 03/13/2021 1 [employer] [id number] Poli Silveira [id number] Pepper Galbierz 04/06/2022 1 [employer] Alexander Galbierz [id number] Pepper Galbierz 02/04/2025 1 [employer] (POS II) Pepper Galbierz [id number] Pepper Galbierz 01/06/2024 1 [employer] [id number] Alexander Galbierz [id number] 1 Pepper Galbierz Notes Date Note Type Note Provider Name and Address Organization Details Recorded Time 3 text/html Vaginal/Vulvar ProblemReported by PatientHPIFor associated symptoms, patient reportsvaginal itchingandvaginal irritation. For location, patient reportsvulvaandvagina.w radha clumpy dischargeROS as noted in the HPI Rosa Maria Nesbitt CNM [address], [place], [address], [facility] 09/21/2022 09:38:45 4 text/html Annual GYNReported by PatientHistoryFor history, (bleeding after intercourse, well endowed partner, no odor, no discharge).Genitourinar y symptomsFor menstrual cycle, patient reportsmenorrhagia(pcos , declines bcm or cycle control). For urinary symptoms, patient reportsno hematuriaandno incontinence. For vulva, patient reportsno genital lesion. For vagina, patient reportsnormal vaginal discharge.Breast symptomsFor breast, patient reportsno breast pain,no breast lump, andno nipple discharge.Endocrine symptomsFor sexual complaints, patient reportsno sexual complaints,no pain during intercourse, andnormal libido. For menopausal symptoms, patient reportsno menopausal symptomsandnormal vaginal lubrication.Psychologic al symptomsFor psychological symptoms, patient reportsno depression,no anxiety, andno pmdd.Preventative measuresFor preventive measures, patient reportsencourage self breast examination,encourage regular exercise, andencourage no tobacco use.plan pap, cultures,ROS as noted in the HPI Rosa Maria Nesbitt CNM [address], [place], [address], [facility] 01/08/2024 16:52:04 5 text/html 29 y/o female presents with c/o heavy, painful periods over the past two years. Patient states that she often cannot leave her bed during the first few days of her period due to the pain and she has large blood clots. Patient describes the pain as cramping and shooting down her thighs.Patient also experiences bloating, nausea, and diarrhea right before and during her periods.Patient states that NSAIDs and heating pad does not help the pain anymore. She also feels fatigue. Patient also reports inability to conceive over the past 2 years. Patient states that she had a child with her current partner in 2019, and her pelvic pain has worsened since then. Hx PCOS.Patient reports being concerned that she has endometriosis. Patient also reports feeling overwhelmed, angry, and sad the week before each period. Denies SI/HI. MELISSA CRYSTAL NP [address], [place], [address], [facility] 02/04/2025 11:48:47 5 text/html 29-year-old female with severe pelvic pain and dysmenorrhea. Her story is consistent with a history of endometriosis. She had pain now throughout the menstrual cycle but initially only at the time of her menses. Her pain started in her late teens and early 20s. Has progressively gotten worse. She has pain with intercourse. She has painful bowel movements. She has some urinary urgency. We discussed treatment options in detail. She has failed some medical treatments. We spent over 30 minutes on her care in total. We discussed surgical treatment. We discussed diagnosis and treatment of endometriosis feel laparoscopic surgery. We have agreed to move forward with diagnostic laparoscopy. The patient understands the procedure. The procedure was described to the patient in great detail. the patient also understands the risks. The risks were also explained in detail. She understands that injuries May occur during surgery. She understands these injuries can result in hospitalization, more surgery, and severe illness. She understands there is risk of hemorrhage and infection. Paulo Lopez MD [address], [place], [address], [facility] 02/24/2025 10:45:57 OBGyn Episode Ob Episode Information Episode Created Date Number of Fetuses Patient Bloodtype Patient rh Status Prepregnancy Weight lbs Domestic Partner Domestic Partner Phone Father Name Supervisor Plasma Status 07/20/19 21 1 CLOSED Fetus Data First Name Last Name Admitted to NICU Weight (g) Sex Living Outcome Pediatric Complications Fetus ID Race Codes Race Delivery Type 3146.56 [id number] F Full Term [id number] Vaginal Delivery Cameron Calculation Initial Cameron Date Initial Exam Date Initial Exam Provider Initial Ultrasound Date Last Menstrual Period Date Ultra Sound Weeks Gestation 0 Eighteen To Twenty Week Cameron Update Ultra Sound Date Fundal Height At Umbil Quickening Date Ultra Sound Latest Weeks Gestation Final Cameron Confirmed By Final Cameron Confirmed Date Final Cameron Date Ultra Sound Latest Days Gestation 0 0 Menstrual History Last Menstrual Date Menses Monthly On Bcp Conception Prior Menses Frequency Hcg Plus Date Menarche Onset Age Delivery Information Delivery Date Delivery Type Labor Anesthesia Weeks Gestation Incision Type Labor Labor Length Hrs Delivered By Post Complications Tubal Sterilization Discharge Date Comments 9 39.2 Discharge Information Feeding Method Contraceptive Method Maternal HG B and HCT Levels
== END 2025-03-12 08:40 | disposition home or self-care (01) ==
LOC: ANHSURGERY 08:43
PROVIDERS: PCP Clinical Nurse Specialist; Visit Provider Obstetrics & Gynecology
DX: Z01.818 Encounter for other preprocedural examination (principal); R10.20 Pelvic and perineal pain unspecified side
CPT/HCPCS: 36415; 86850; 86900; 86901

== ENCOUNTER 2025-03-19 02:23 | Day surgery (SDC) | payer OTHER, SELFPAY ==
--- NOTE | 2025-03-11 10:48 | SUR.PREOP ---
[facility] has started construction of its new state of the art ER which will open Spring 2026. With this, we anticipate parking may be a challenge for some our surgical patients and families. Parking spaces are limited but are available for all Surgical, obstetrics, and ER patients sharing this lot. If you arrive and find you are having a hard time finding a parking space, please note that we understand the challenges, please drive around the hospital and park near Hospital Entrance 1. When you enter this entrance, you can ask a volunteer to direct or take you back to the surgical waiting area to check in. We appreciate everyone?s understanding of these expected challenges while we build for your future. Report to the Outpatient Waiting Room, entrance under the green pavilion located off [address], at time _0600_ on date _03/19/25_. Planned Procedure Time: _0730_.? Time changes happen often and if your time is changed the preop area will call you the afternoon before. - You and your visitor will be asked to self-screen and do not enter if you have any COVID symptoms. Please call surgeon if you need to reschedule. - A mask is optional within the hospital at this time. Patients may have clear liquids (water, carbonated beverages, clear teas, apple juice) until 3 hours (0430) prior to surgery with a maximum of 20 ounces. - No food from midnight until time of surgery and no smoking, or chewing tobacco (or any form of nicotine). No chewing gum, candy or mints. Take only the following medications with a SIP of water on the morning of surgery: _NA_ DO NOT STOP ANY OF YOUR OTHER PRESCRIPTION MEDICATIONS PRIOR TO SURGERY EXCEPT THE FOLLOWING Hold all vitamins and supplements for 3 days per anesthesiologist. Medications to discontinue per physician _NA_ Date to take last dose_NA_ Please no make-up, nail congolese, hairspray, perfume, deodorant, or body powder the day of surgery.? No jewelry (including any body piercings) or valuables the day of surgery, leave them at home.? Please take a shower or bath the night before, or the morning of, surgery with an antibacterial soap.? Wear comfortable, loose fitting clothing. - Jewelry must be removed prior to entering the operating room.? Rings and piercings that are not removed may be cut off. - The hospital will not accept responsibility for valuables.? - Please leave all valuables, including medications, at home the day of surgery. If you are going home after surgery, a licensed tow car driver must drive you home.? - NO public transportation without another adult if you receive anesthesia. - We recommend that an adult stay with you for 24 hours following discharge. - We also recommend that you do not drive, make important decision, drink alcoholic beverages, or take any drugs that were not prescribed by your health care provider for at least 24 hours after your discharge time. Follow any additional instructions given to you from your surgeon. Telephone instructions given to _ERIKA_and asked if any additional questions and then verbalized understanding. Patient advised to call surgeon office or pre surgery nurse liaison [phone] if any additional questions.
[2025-03-11 10:53] VITALS: BMI 32.3
[2025-03-19] VITALS (8 sets, daily range): BP systolic 113–134; BP diastolic 63–96; PULSE 79–95; RESP 12–16; TEMP 36.3–36.8; O2SAT 100
[2025-03-19] MEDS: ACETAMINOPHEN 500 MG TABLET 1000 MG PO (07:00)
[2025-03-19] MEDS: LACTATED RINGERS 1,000 ML 30 ML IV CONT ×2 (07:00→09:44)
[2025-03-19] MEDS: KETOROLAC 15 MG/ML VIAL (*BKC) IV PUSH (07:00)
--- NOTE | 2025-03-19 07:18 | P.PNAN_ITS ---
Anes - Initial Pre Proc Eval Procedure: Operation Date: 03/19/25 07:30 Proposed Procedures p Robotic Diagnostic Laparoscopy - Paulo Lopez MD Date/Time: 03/19/25 07:18 Surgeon: Paulo Lopez MD Pre Op Diagnosis: pelvic pain Patient Data Age: 29 Gender: F Height: 1.52 m Weight: 75 kg Allergies Allergy/AdvReac Type Severity Reaction Status Date / Time latex Allergy Intermediate Rash Verified 03/11/25 10:42 escitalopram Allergy Unknown Other Verified 03/11/25 10:42 lactose AdvReac Intermediate Diarrhea Verified 03/11/25 10:42 Home Medications ?Medication ?Instructions ?Recorded ?Confirmed ?Type No Home Medications 03/11/25 03/11/25 H istory Patient hx anesthesia problems: none Family hx anesthesia problems: none Results Review: All pre-operative results and documents have been reviewed as part of the pre- operative evaluation. [facility] Past Medical History Medical History Elevated temperature Irritable bowel syndrome Right ankle pain Migraine aura without headache False labor Amniotic fluid leaking Vaginal delivery Heart murmur PCOS (polycystic ovarian syndrome) contractions Surgical History Surgical History No history of previous surgery Family History Family History Mother Diabetes mellitus Hypertension Grandparent Diabetes mellitus Skin cancer Social History Social History Social History: She is [facility] They have been since 2019. They have a 3 point 5-year-old daughter. She works at a local [employer]. She rarely drinks alcohol and only small amounts. She denies any illicit substance use. She is a lifelong nonsmoker. Code status: Full code Surrogate decision maker: Years smoked: 5 Smoking status: Never smoker Tobacco type: cigarettes Second hand tobacco smoke exposure: No Smoking end date: 03/10/23 Alcohol intake: never Substance use: never Substance use type: marijuana Other substance usage details: DOES NOT SMOKE MARIJUANA ANYMORE Lack of Transportation: No Lack of Food: Never True Current Housing: I Have Housing Concerned About Future Housing: No Difficulty Paying Gas/Electric Bills: No Difficulty Paying for Meds: No Currently Unemployed: No Education: Bachelor's Degree Difficulty w/ Childcare or Family Care: No Living arrangements: with family Gender identity (if verbalized by the patient): Female Spiritual care concerns: No Anes - Eval Final PreProcedure Day of Procedure 03/19/25 07:18 Patient weight: obese Lungs: normal air movement Airway: Mallampati scale class II Neurological: alert and oriented Last oral intake: >/= 8 hours ASA classification: II Emergent: no Anesthetic plan: proceed Anesthesia type and monitoring: general ETT and standard monitoring Results Review: All pre-operative results and documents have been reviewed as part of the pre- operative evaluation. BMI 32, hx of migranes. Active w her 5 yo, no cp or sob. Informed Consent: The patient's anesthetic plan and its attendant risks and benefits were discussed with the patient/family/POA. Questions were solicited and answers provided to the satisfaction of the patient/family/POA.
[2025-03-19 07:49] LABS: BEDSIDEPREGUCG Negative (Negative)
[2025-03-19] MEDS: SCOPOLAMINE 1 MG PATCH 1 PATCH TRANSDERM (07:49)
--- NOTE | 2025-03-19 07:51 | WPDHPUPDATE1 ---
History and Physical Update Update Date/Time: 03/19/25 07:51 History and Physical has been reviewed, including an updated exam of the patient. There are NO changes in the patient's condition. Risks, benefits, and alternatives have been discussed and questions answered. Patient agrees to proceed with procedure.
--- NOTE | 2025-03-19 09:08 | S_PTH ---
PATIENT: Pepper Pickering LOC: [facility] U#:[id number] AGE/SX: 29/F ROOM: RE03/19/[address]: Paulo Lopez MD : 1995 BED: DIS: 03/19/2025 SPEC #: [id number] RECD: 03/19/25 11:23 STATUS: AURA REQ #: [id number] TIAGO: 03/19/25 09:[address]: Paulo Lopez DEPT: [facility] Surgical RECD BY: Natali Forbes ENTERED: 03/19/25 11:24 SP TYPE: Surgical OTHR DR: Rosa Maria Guo, BOB Tissues: A - Peritoneal Bx Procedures: Hematoxylin and Eosin Stain Gross and Microscopic Level 4
[2025-03-19] MEDS: fentaNYL CITRATE INJ (*CRX) 100 MCG/2 ML VIAL 25 MCG IV PUSH ×2 (09:50→09:55)
--- NOTE | 2025-03-19 09:58 | W.PM.PROC2 ---
Procedure Note - Detailed Date of Procedure 03/19/25 Pre-op Diagnosis pelvic pain Post-op Diagnosis Same (With endometriosis) Procedure Performed Radical resection of endometriosis. Surgeon Paulo Lopez MD Anesthesia General Indications Pelvic pain Findings Subtle vesicular endometrial lesions on the left hemipelvis the posterior cul-de-sac. Description of Procedure The patient was taken the operating room. She was prepped and draped in the dorsal lithotomy position after induction of general anesthesia. A 8 mm skin incision was made in the left upper quadrant the abdomen. a 5 mm Visiport trocar was inserted into abdominal cavity and pneumoperitoneum was achieved. A 8 mm supraumbilical incision was made and a 8 mm trocar was inserted into the intrauterine cavity under direct visualization of the scope. an 8 mm incision was made in the right upper quadrant of the abdomen and an 8 mm robotic trocar was placed the abdominal cavity under direct visualization the scope. An 11 mm trocar was inserted in the right upper quadrant of the abdomen. The robot was docked. Electronic Orientation of the robot was performed. The ovaries were suspended. This was done using Emmanuel-Josephine Endoclose needle and 0 Vicryl. The bilateral lower quadrants were pierced with the Emmanuel-Josephine needle while being transilluminated. They were carrying an 0 Vicryl suture which was passed through the ovary bilaterally brought back out through the same incision/puncture site. They were held in place on the skin surface with a hemostat. A GALLITO manipulator was placed in the intrauterine cavity using speculum and tenaculum. It was anteflexed. This revealed the entire posterior cul-de-sac clearly. The posterior cul-de-sac peritoneum was removed completely on the left side from the infundibulopelvic ligament and suspensory ligament ovary laterally, to the rectum medially the peritoneum was caudal cephalad dimension was from the pelvic brim down to the uterine arteries. This was done with sharp and blunt dissection and cautery. The ureter was dissected out and isolated. Areas in the deepest posterior cul-de-sac were cauterized. There was some very mild endometriotic lesions in this area. The pelvis was irrigated. Copious amounts of irrigation were used. Interceed was placed over the dissected areas bilaterally. Two pieces were used. The pneumoperitoneum was reduced. The trocars were removed. Skin was closed with subcuticular 4 micro. The patient's incisions were covered with Dermabond. She was taken recovery room in stable condition. Sponge lap and needle counts were correct x2. Estimated Blood Loss 25 Pathology Yes Complications No immediate complications Condition Stable Disposition PACU
[2025-03-19] MEDS: oxyCODONE HCL (*CRX) 5 MG TAB IR PO (10:39)
== END 2025-03-19 11:30 | disposition home or self-care (01) ==
PROVIDERS: PCP Clinical Nurse Specialist; Visit Provider Obstetrics & Gynecology
PROC: 8E0W4CZ Robotic Assisted Procedure of Trunk Region, Percutaneous Endoscopic Approach (ICD-10-PCS; CPT 49320; principal; 2025-03-19 07:30)
DX: N80.329 Endometriosis of the posterior cul-de-sac, unspecified depth (principal); G89.18 Other acute postprocedural pain; E28.2 Polycystic ovarian syndrome; K21.9 Gastro-esophageal reflux disease without esophagitis; D64.9 Anemia, unspecified; E78.00 Pure hypercholesterolemia, unspecified; K58.9 Irritable bowel syndrome, unspecified; R01.1 Cardiac murmur, unspecified; L30.9 Dermatitis, unspecified; E66.9 Obesity, unspecified; Z68.30 Body mass index [BMI] 30.0-30.9, adult; Z80.1 Family history of malignant neoplasm of trachea, bronchus and lung; Z84.0 Family history of diseases of the skin and subcutaneous tissue
CPT/HCPCS: 58662; 88305; A9270; J1100; J1885; J2003; J2250; J2270; J2405; J2704; J3010; J7120